=== PATIENT | female | born 1955 | race Two or more races ===

== ENCOUNTER → 2017-10-31 | Outpatient (CLI) | payer MEDICAID ==
[~2017-10-31] VITALS: Ht 162.6 cm; Wt 95.3 kg
[~2017-10-31] MED LIST: ADENOSINE 80 MG in GIVE UN-DILUTED 0 ML IV ONE
[2017-10-31 09:19] VITALS: BP 154/94
== END | disposition home or self-care (01) ==
LOC: XY 08:10
PROVIDERS: ATTEND Internal Medicine Cardiovascular Disease
DX: R07.89 Other chest pain (principal)
CPT/HCPCS: 78452; 93017; A9500; J0153

== ENCOUNTER 2022-01-11 21:22 | Emergency (ER) | payer SELFPAY ==
[~2022-01-11] VITALS: Ht 160 cm; Wt 102.3 kg
[2022-01-11 21:35] VITALS: BP 109/56
[2022-01-11 22:29] LABS: Basophils # (auto) 0 10 ^3/uL (0-0.2); Basophils % (auto) 0.2 % (0.0-2.0); Eosinophils # (auto) 0 10 ^3/uL (0-0.8); Eosinophils % (auto) 0.3 % (0.0-7.0); Hematocrit 40.5 % (36.0-46.0); Hemoglobin 13.3 g/dL (12.2-16.2); Lymphocytes % (auto) 7.2 % (10.0-50.0); Mean Corpuscular Hemoglobin 28.1 pg (28.0-32.0); Mean Corpuscular Hgb Conc. 32.9 g/dL (32.0-36.0); Mean Corpuscular Volume 85.4 fL (80.0-100.0); Monocytes # (auto) 0.4 10 ^3/uL (0-1.3); Monocytes % (auto) 3.1 % (0.0-12.0); Neutrophils # (auto) 12.9 10 ^3/uL (1.6-8.6); Neutrophils % (auto) 89.2 % (37.0-80.0); Red Blood Cells 4.74 10^6/uL (4.0-5.20); Red Cell Distribution Width 15.1 % (11.8-14.3); White Blood Cell 14.4 10^3/uL (4.4-10.8)
[2022-01-11 22:49] LABS: Albumin 3.8 g/dL (3.4-5.0); Calcium 9.3 mg/dL (8.5-10.1); Potassium 3.8 mmol/L (3.5-5.1)
[2022-01-11 22:53] LABS: BUN/Creatinine Ratio 23.1; Bilirubin, Total 0.8 mg/dL (0.2-1.0); Total Protein 7.5 g/dL (6.4-8.2)
[2022-01-11] MEDS ORDERED: LEVO-28 PO (23:44)
== END 2022-01-12 02:58 | disposition home or self-care (01) ==
LOC: ER 21:24
DX: K52.9 Noninfective gastroenteritis and colitis, unspecified (principal); I10 Essential (primary) hypertension; Z90.710 Acquired absence of both cervix and uterus
CPT/HCPCS: 36415; 71250; 74176; 80053; 84484; 85025

== ENCOUNTER → 2024-03-15 | Outpatient (CLI) | payer OTHER ==
[~2024-03-15] MED LIST changes: -ADENOSINE 80 MG in GIVE UN-DILUTED 0 ML IV ONE; +LEVO500T91 PO
[2024-03-15 15:30] LABS: Urine Bacteria FEW /hpf (None Seen); Urine Blood Negative /uL (Negative); Urine Clarity Clear (Clear); Urine Color Light-Yellow (Yellow); Urine Mucus FEW (None Seen); Urine Protein, UAD Negative (Negative); Urine Specific Gravity 1.023 (1.001-1.035); Urine Urobilinogen Normal (Negative); Urine WBC 9 /hpf (0 - 5); Urine pH 5.5 (5.0-9.0)
== END | disposition home or self-care (01) ==
LOC: LAB 15:03
PROVIDERS: ATTEND Urology
DX: R32 Unspecified urinary incontinence (principal)
CPT/HCPCS: 81001; 87086

== ENCOUNTER 2024-03-19 09:57 | Inpatient (IN) | payer OTHER, MEDICAID ==
[~2024-03-19] VITALS: Ht 162.6 cm; Wt 53.4 kg
--- NOTE | 2024-03-19 10:17 | ED.PDOC ---
GI ASSESSMENT HPI Comments 68-year-old female who comes in with chief complaint of abdominal pain which started this morning. The patient was also been having episodes of vomiting since this morning. The patient has vomited approximately 4 times. She states that the pain is a 10/10. The pain is epigastric in nature and radiates to the back. She has had these symptoms in the past and she states that her last episode was approximately one month ago. Initially, the patient went to the local urgent care and was given Zofran 8 mg without any relief. The patient was also given a GI cocktail with no relief. Chief Complaint: Abdominal Pain Time Seen by MD: 10:02 Reviewed Notes: Nurses Notes, Medications, Allergies (No allergies to medications) Allergies: Coded Allergies: NO KNOWN ALLERGIES (Unverified , 10/31/17) Home Meds Active Scripts Levofloxacin Hemihydrate (LEVOFLOXACIN) 500 Mg Tab, 500 MG PO DAILY for 7 Days, #7 MG Prov:SHANA MILLER MD 01/11/22 Information Source: Patient Mode of Arrival: Ambulatory Timing: Hours Duration: Since onset Prehospital treatment: None Quality: Sharp Vomitus: Bilious Stool: Normal Severity: Moderate Recent: None Recent Hx of: None Pain Location: Epigastric Modifying Factors: Nothing Associated sign and symptoms: Nausea, Vomiting, Abdominal Pain Past Medical History PAST MEDICAL HISTORY: HTN Surgical History: Hysterectomy [employer]OMO[employer]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 History Family History Family History: Family hx of DM, Family hx of stroke Social History Smoker: Non-Smoker Alcohol: Occasionally Drugs: Denies Drug Use Lives In: Home Constitutional: denies: chills, diaphoresis, fatigue, fever, malaise, sweats, weakness, others EENTM: denies: blurred vision, double vision, ear bleeding, ear discharge, ear drainage, ear pain, ear ringing, eye pain, eye redness, hearing loss, mouth pain, mouth swelling, nasal discharge, nose bleeding, nose congestion, nose pain, photophobia, tearing, throat pain, throat swelling, voice changes, others Respiratory: denies: cough, hemoptysis, orthopnea, SOB at rest, shortness of breath, SOB with excertion, stridor, wheezing, others Cardiovascular: denies: chest pain, dizzy spells, diaphoresis, Dyspnea on ex ertion, edema, irregular heart beat, left arm pain, lightheadedness, palpitations, PND, syncope, others Gastrointestinal: reports: abdominal pain, nausea, vomiting; denies: abdomen distended, blood streaked bowels, constipated, diarrhea, dysphagia, difficulty swallowing, hematemesis, melena, poor appetite, poor fluid intake, rectal bleeding, rectal pain, others Genitourinary: denies: abnormal vagina bleeding, burning, dyspareunia, dysuria, flank pain, frequency, hematuria, incontinence, pain, , vagina discharge, urgency, others Neurological: denies: dizziness, fainting, headache, left sided numbness, left sided weakness, numbness, paresthesia, pre-existing deficit, right sided numbness, right sided weakness, seizure, speech problems, tingling, tremors, weakness, others Musculoskeletal: denies: back pain, gout, joint pain, joint swelling, muscle pain, muscle stiffness, neck pain, others Integumetry: denies: bruises, change in color, change in hair/nails, dryness, laceration, lesions, lumps, rash, wounds, others Allergic/Immunocompromised: denies: Difficulty Healing, Frequent Infections, Hives, Itching, others Hematologic/Lymphatic: denies: anemia, blood clots, easy bleeding, easy bruising, swollen glands, others Endocrine: denies: excessive hunger, excessive sweating, excessive thirst, excessive urination, flushing, intolerance to cold, intolerance to heat, unexplained weight gain, unexplained weight loss, others Psychiatric: denies: anxiety, bipolar disorder, depression, hopeless, panic disorder, schizophrenia, sleepless, suicidal, others Physical Exam General Appearance: Moderate Distress, Obese HEENT: Normal ENT Inspection, Pharynx Normal, TMs Normal Neck: Full Range of Motion, Non-Tender, Normal, Normal Inspection Respiratory: Chest Non-Tender, Lungs Clear, No Accessory Muscle Use, No Respiratory Distress, Normal Breath Sounds Cardiovascular: No Edema, No JVD, No Murmur, No Gallop, Normal Peripheral Pulses, Regular Rate/Rhythm Breast Exam: Deferred Gastrointestinal: Epigastric, No Organomegaly, No Pulsatile Mass, Normal Bowel Sounds, Soft, Tenderness Genitalia: Deferred Pelvic: Deferred Rectal: Deferred Extremities: No calf tenderness, Normal capillary refill, Normal inspection, Normal range of motion, Non-tender, No pedal edema Musculoskeletal : Apperance: Normal Neurologic: Alert, metals analyst II-XII nml as Tested, Motor Weakness, Normal Affect, Normal Mood, No Sensory Deficits Cerebellar Function: Normal Reflexes: Normal Skin: Dry, Normal Color, Warm Lymphatic: No Adenopathy EKG EKG : Pulse Rate (adult): 67 [place]: Normal Cardiac Rhythm: NSR Block: None ST: Nonsp Was a procedure done? Was a procedure done?: No GI differential Dx Differential Diagnosis: Appendicitis, Cholangitis, Cholecystitis, Diverticular disease, Gastritis/PUD, Gastroenteritis X-Ray, Labs, Meds, VS Vital Signs Date Time Temp Pulse Resp B/P (MAP) Pulse Ox O2 Delivery O2 Flow Rate FiO2 03/19/24 11:08 73 16 107/51 03/19/24 10:50 62 18 99 Room Air* 0 21 03/19/24 10:37 62 18 112/53 03/19/24 10:17 67 03/19/24 10:13 98.2 83 19 117/77 (90) 99 03/19/24 10:08 67 Lab Test 03/19/24 10:19 Range/Units White Blood Count 9.4 4.4-10.8 10^3/uL Red Blood Count 4.69 4.0-5.20 10^6/uL Hemoglobin 13.5 12.2-16.2 g/dL Hematocrit 39.7 36.0-46.0 % Mean Corpuscular Volume 84.6 80.0-100.0 fL Mean Corpuscular Hemoglobin 28.8 28.0-32.0 pg Mean Corpuscular Hemoglobin Concent 34.0 32.0-36.0 g/dL Red Cell Distribution Width 14.3 11.8-14.3 % Platelet Count 273 140-450 10^3/uL Mean Platelet Volume 8.5 6.9-10.8 fL Neutrophils (%) (Auto) 90.3 H 37.0-80.0 % Lymphocytes (%) (Auto) 6.0 L 10.0-50.0 % Monocytes (%) (Auto) 3.4 0.0-12.0 % Eosinophils (%) (Auto) 0.1 0.0-7.0 % Basophils (%) (Auto) 0.2 0.0-2.0 % Neutrophils # (Auto) 8.5 1.6-8.6 10 ^3/uL Lymphocytes # (Auto) 0.6 0.4-5.4 10 ^3/uL Monocytes # (Auto) 0.3 0-1.3 10 ^3/uL Eosinophils # (Auto) 0 0-0.8 10 ^3/uL Basophils # (Auto) 0 0-0.2 10 ^3/uL Nucleated Red Blood Cells 0.1 % Sodium Level 142 136-145 mmol/L Potassium Level 3.8 3.5-5.1 mmol/L Chloride Level 109 H 98-107 mmol/L Carbon Dioxide Level 28 20-31 mmol/L Anion Gap 5 5-15 Blood Urea Nitrogen 15 9-23 mg/dL Creatinine 0.76 0.550-1.02 mg/dL Glomerular Filtration Rate Calc 86 >90 mL/min BUN/Creatinine Ratio 19.7 10.0-20.0 Serum Glucose 134 H 74-106 mg/dL Calcium Level 10.6 H 8.7-10.4 mg/dL Total Bilirubin 2.2 H 0.2-1.0 mg/dL Aspartate Amino Transferase (AST) 324 H 13-40 U/L Alanine Aminotransferase (ALT) 232 H 7-40 U/L Alkaline Phosphatase 129 H 46-116 U/L Total Protein 7.8 5.7-8.2 g/dL Albumin 4.5 3.2-4.8 g/dL Lipase Pending Current Medications Medications (Trade) Dose Ordered Sig/Cheryl Route Start Time Stop Time Status Last Admin Morphine Sulfate 4 mg ONCE ONCE IV 03/19/24 10:15 03/19/24 10:16 DC 03/19/24 10:37 Sodium Chloride 500 ml @ 500 mls/hr Q1H ONCE IVB 03/19/24 10:15 03/19/24 11:14 DC 03/19/24 10:37 Prochlorperazine Edisylate (Compazine Inj) 10 mg ONCE ONCE IV 03/19/24 10:15 03/19/24 10:16 DC 03/19/24 10:36 Pantoprazole Sodium (Protonix) 40 mg ONCE ONCE IV 03/19/24 10:15 03/19/24 10:16 DC 03/19/24 10:36 IV Hep-Lock is being ordered The patient was given normal saline at a 500 cc bolus The patient was given Compazine 10 mg IV push The patient was also being given morphine 4 mg IV push The patient was given Protonix 40 mg IV push The ultrasound of the gallbladder shows gallstones At this time, the patient will be admitted to the hospitalist. Images Reviewed?: Images reviewed and evaluated by me Time of 1ST Reevaluation: 10:17 Reevaluation 1ST: Unchanged Patient Education/Counseling: Diagnosis, Treatment, Prognosis Family Education/Counseling: No Family Present Departure 1 Departure Time of Disposition: 11:39 Impression: Primary Impression: Acute abdominal pain Additional Impression: Cholelithiasis Qualified Codes: K80.20 - Calculus of gallbladder without cholecystitis without obstruction Disposition: ADMITTED INPATIENT Admit to: Med Surg Condition: Fair Critical Care Note Critical Care Time?: No Stability Stability form required: Yes (Okay) Unstable for transfer: ED Physician Assesment (Clinical assesment) Heart Score Heart Score: Heart Score Response (Comments) Value History N/A 0 EKG N/A 0 Age N/A 0 Risk Factors N/A 0 Troponin N/A (They are used a discharge that arena soup) 0 Total 0 LIZBETH HOBBS MD Mar 19, 2024 10:17
[2024-03-19] MEDS: PROCHLORPERAZINE EDISYLATE 5 MG/ML 2ML VIAL IV ONE (10:36)
[2024-03-19] MEDS: PANTOPRAZOLE 40 MG/10 ML VIAL INJ IV ONE ×2 (10:36→22:25)
[2024-03-19] MEDS: SODIUM CHLORIDE 0.9% 500 ML IVB ONE (10:37)
[2024-03-19] MEDS: MORPHINE SULFATE 4 MG/ML SYR/VIAL IV ONE (10:37)
[2024-03-19 10:43] LABS: Basophils # (auto) 0 10 ^3/uL (0-0.2); Basophils % (auto) 0.2 % (0.0-2.0); Eosinophils # (auto) 0 10 ^3/uL (0-0.8); Eosinophils % (auto) 0.1 % (0.0-7.0); Hematocrit 39.7 % (36.0-46.0); Hemoglobin 13.5 g/dL (12.2-16.2); Lymphocytes # (auto) 0.6 10 ^3/uL (0.4-5.4); Mean Corpuscular Hemoglobin 28.8 pg (28.0-32.0); Mean Corpuscular Volume 84.6 fL (80.0-100.0); Monocytes # (auto) 0.3 10 ^3/uL (0-1.3); Monocytes % (auto) 3.4 % (0.0-12.0); Neutrophils # (auto) 8.5 10 ^3/uL (1.6-8.6); Neutrophils % (auto) 90.3 % (37.0-80.0); Nucleated Red Blood Cells % 0.1 %; Platelet Count (auto) 273 10^3/uL (140-450); Red Blood Cells 4.69 10^6/uL (4.0-5.20); Red Cell Distribution Width 14.3 % (11.8-14.3); White Blood Cell 9.4 10^3/uL (4.4-10.8)
[2024-03-19 10:50] VITALS: PULSE 62; RESP 18; O2SAT 99
[2024-03-19 11:01] LABS: Alanine Aminotransferase 232 U/L (7-40); Albumin 4.5 g/dL (3.2-4.8); Alkaline Phosphatase 129 U/L (46-116); Anion Gap 5 (5-15); Aspartate Aminotransferase 324 U/L (13-40); BUN/Creatinine Ratio 19.7 (10.0-20.0); Bilirubin, Total 2.2 mg/dL (0.2-1.0); Blood Urea Nitrogen 15 mg/dL (9-23); Calcium 10.6 mg/dL (8.7-10.4); Carbon Dioxide 28 mmol/L (20-31); Chloride 109 mmol/L (98-107); Glucose 134 mg/dL (74-106); Potassium 3.8 mmol/L (3.5-5.1); Sodium 142 mmol/L (136-145); Total Protein 7.8 g/dL (5.7-8.2)
--- NOTE | 2024-03-19 11:28 | DVH ---
INDICATION: Pain. TECHNIQUE: Multiple real-time sonographic images of the abdomen were obtained. COMPARISON: None FINDINGS: The liver is homogenous in echogenicity. The liver measures 17cm. No intrahepatic biliary ductal dilatation is noted. The gallbladder wall measures 0.2 cm and is unremarkable. Gallstones are noted. The common duct wayne sures 0.5 cm and is unremarkable. No pericholecystic fluid is noted. The right kidney measures 8cm. No hydronephrosis. The pancreas is not well visualized due to obscuration from bowel gas. The visualized portions of the IVC and aorta are grossly unremarkable. IMPRESSION: Gallstones.
[2024-03-19 12:10] LABS: Lipase > 3500 U/L (12-53)
[2024-03-19 13:07] LABS: Urine Bacteria MANY /hpf (None Seen); Urine Blood Negative /uL (Negative); Urine Clarity Clear (Clear); Urine Color Yellow (Yellow); Urine Mucus FEW (None Seen); Urine Protein, UAD TRACE (Negative); Urine Specific Gravity 1.017 (1.001-1.035); Urine Urobilinogen 6 mg/dL (Negative); Urine WBC 3 /hpf (0 - 5)
--- NOTE | 2024-03-19 18:26 | DVH ---
[id number] MRI MRCP MRI Attending Name: LIZBETH HOBBS COMPARISON: CT scan dated 01/11/2022, ultrasound dated 03/19/2024 INDICATION: CBD Stones TECHNIQUE: MRCP was performed without the use of intravenous contrast using a MRI imaging system. Three-dimensional MRCP was performed using maximum intensity projection reconstruction on an [employer] workstation under concurrent supervision. FINDINGS: Edematous pancreas with peripancreatic edema. No pancreatic ductal dilatation noted. No pseudocyst formation. The common bile duct is normal in caliber measuring 4-5 mm in caliber. Mildly distended ga llbladder containing numerous gallstones. No gallbladder wall thickening. There is mild thickening of the gallbladder wall with subcentimeter diverticular formation suggestive of adenomyomatosis. Liver, spleen, kidneys and adrenal glands are unremarkable. Mild bibasilar subsegmental atelectasis n oted. IMPRESSION: 1. Acute pancreatitis. Correlate with lipase. No pseudocyst is present at this time. 2. Numerous tiny calculi noted in the gallbladder. No choledocholithiasis or CBD dilatation. 3. Findings suggestive of gallbladder adenomyomatosis.
[2024-03-19] MEDS ORDERED: ONDANSETRON HCL 4 MG/2 ML VIAL IV PRN (21:30)
[2024-03-19] MEDS ORDERED: NITROGLYCERIN 0.4 MG SL TAB SL PRN (21:30)
[2024-03-19] MEDS ORDERED: MORPHINE SULFATE INJ 2 MG/ml SYRG IV PRN (21:30)
[2024-03-19] MEDS ORDERED: SODIUM CHLORIDE 0.9% 1,000 ML IV SCH (21:30)
[2024-03-19] MEDS: SODIUM CHLORIDE 0.9% 1,000 ML IV SCH (22:24)
--- NOTE | 2024-03-19 22:32 | DVHHPRES ---
History of Present Illness Resident Creating Document: SHARON WATERMAN RESIDENT History of Present Illness This is a 68-year-old female with past medical history of hypertension presented to the ED with chief complaint of epigastric pain and vomiting since morning prior to this admission. According to the patient the epigastric pain is colicky in nature, 10/10 radiate to the back and associated with nausea and vomiting without any aggravating and relieving factors. She also mentioned she had intermittent few episodes of abdominal pain in last 1 month but did not seek any medical attention. Initially the patient went to local urgent care and was given Zofran 8 mg and also GI cocktail without any relief. She also complaining of incontinence of urine, urgency and hesitancy and need to use pad for last 2 month. The patient denies chest pain, dizziness, diaphoresis, shortness of breath, dysuria or any change in bowel and bladder habit . Cardiovascular: HTN Past Medical History Hypertension Past Surgical History Hysterectomy Family History Family history significant for type 2 diabetes mellitus and stroke Smoke: No ALCOHOL: none Drugs: None Lives: with Family Review of Systems Constitutional: No: Fever, Chills, Sweats, Weakness, Malaise, Other Eyes: No: Pain, Vision change, Conjunctivae inflammation, Eyelid inflammation, Other, Redness ENT: No: Ear pain, Ear discharge, Nose pain, Nose discharge, Nose congestion, Mouth pain, Mouth swelling, Throat pain, Throat swelling, Other Respiratory: No: Cough, Dry, Shortness of breath, SOB with excertion, Wheezing, Hemoptysis, Pleuritic Pain, Sputum, Wheezing, Other Cardiovascular: No: Chest Pain, Palpitations, Orthopnea, Paroxysmal Noc. Dyspnea, Edema, Lt Headedness, Other Gastrointestinal: Nausea, Vomiting, Abdominal Pain; No: Diarrhea, Constipation, Melena, Hematochezia, Other Genitourinary: No Dysuria; Frequency, Incontinence; No Hematuria, No Retention, No Other Musculoskeletal: No: other, neck pain, shoulder pain, arm pain, back pain, hand pain, leg pain, foot pain Skin: No: Rash, Lesions, Jaundice, Bruising, Other Neurological: No: Weakness, Numbness, Incoordination, Change in speech, Confusion, Seizures, Other Allergies: Coded Allergies: NO KNOWN ALLERGIES (Unverified , 10/31/17) Medications Current Medications Medications Dose Ordered Sig/Cheryl Route Start Time Stop Time Status Last Admin Dose Admin Acetaminophen/ Hydrocodone Bitart 1 tab Q4HP PRN PO 03/19/24 21:30 Ondansetron HCl 4 mg Q4HP PRN IV 03/19/24 21:30 Enoxaparin Sodium 40 mg DAILY SC 03/20/24 10:00 Morphine Sulfate 2 mg Q4HPRN PRN IV 03/19/24 21:30 Nitroglycerin 0.4 mg Q5MINP PRN SL 03/19/24 21:30 Morphine Sulfate 2 mg Q30M PRN IV 03/19/24 21:30 Sodium Chloride 1,000 ml @ 100 mls/hr Q10H IV 03/19/24 22:15 03/19/24 22:24 100 MLS/HR Pantoprazole Sodium 40 mg DAILY IV 03/20/24 10:00 Exam Vital Signs Vital Signs Date Time Temp Pulse Resp B/P (MAP) Pulse Ox O2 Delivery O2 Flow Rate FiO2 03/19/24 20:39 71 16 139/63 (88) 99 03/19/24 10:50 Room Air* 0 21 03/19/24 10:13 98.2 Exam Physical examination: General Appearance: Alert, Oriented X3, Cooperative, No acute distress HEENT: Atraumatic, PERRLA, EOMI, Mucous membrane moist/pink Respiratory: Clear to auscultation, Normal air movement Cardiovascular: Regular rate, Normal S1, Normal S2, No murmurs, no chest wall tenderness Abdominal: Normal bowel sounds, Soft, tenderness in the epigastric region, No hepatospenomegaly, No masses Extremities: No clubbing, No cyanosis, No edema, Normal pulses, No tenderness/swelling Skin: No rashes, No breakdown, No significant lesion Neuro: Normal gait, Normal speech, Strength at 5/5 X4 ext, Normal tone, Sensation intact. Psych/Mental Status: Mental status NL, Mood NL Labs/Xrays Labs Test 03/19/24 10:19 03/19/24 10:08 Range/Units White Blood Count 9.4 4.4-10.8 10^3/uL Red Blood Count 4.69 4.0-5.20 10^6/uL Hemoglobin 13.5 12.2-16.2 g/dL Hematocrit 39.7 36.0-46.0 % Mean Corpuscular Volume 84.6 80.0-100.0 fL Mean Corpuscular Hemoglobin 28.8 28.0-32.0 pg Mean Corpuscular Hemoglobin Concent 34.0 32.0-36.0 g/dL Red Cell Distribution Width 14.3 11.8-14.3 % Platelet Count 273 140-450 10^3/uL Mean Platelet Volume 8.5 6.9-10.8 fL Neutrophils (%) (Auto) 90.3 H 37.0-80.0 % Lymphocytes (%) (Auto) 6.0 L 10.0-50.0 % Monocytes (%) (Auto) 3.4 0.0-12.0 % Eosinophils (%) (Auto) 0.1 0.0-7.0 % Basophils (%) (Auto) 0.2 0.0-2.0 % Neutrophils # (Auto) 8.5 1.6-8.6 10 ^3/uL Lymphocytes # (Auto) 0.6 0.4-5.4 10 ^3/uL Monocytes # (Auto) 0.3 0-1.3 10 ^3/uL Eosinophils # (Auto) 0 0-0.8 10 ^3/uL Basophils # (Auto) 0 0-0.2 10 ^3/uL Nucleated Red Blood Cells 0.1 % Sodium Level 142 136-145 mmol/L Potassium Level 3.8 3.5-5.1 mmol/L Chloride Level 109 H 98-107 mmol/L Carbon Dioxide Level 28 20-31 mmol/L Anion Gap 5 5-15 Blood Urea Nitrogen 15 9-23 mg/dL Creatinine 0.76 0.550-1.02 mg/dL Glomerular Filtration Rate Calc 86 >90 mL/min BUN/Creatinine Ratio 19.7 10.0-20.0 Serum Glucose 134 H 74-106 mg/dL Calcium Level 10.6 H 8.7-10.4 mg/dL Total Bilirubin 2.2 H 0.2-1.0 mg/dL Aspartate Amino Transferase (AST) 324 H 13-40 U/L Alanine Aminotransferase (ALT) 232 H 7-40 U/L Alkaline Phosphatase 129 H 46-116 U/L Total Protein 7.8 5.7-8.2 g/dL Albumin 4.5 3.2-4.8 g/dL Lipase > 3500 H 12-53 U/L Urine Color Yellow Yellow Urine Clarity Clear Clear Urine pH 6.0 5.0-9.0 Urine Specific [place] 1.017 1.001-1.035 Urine Protein Trace H Negative Urine Ketones Negative Negative Urine Blood Negative Negative /uL Urine Nitrite 1+ H Negative Urine Bilirubin 1+ H Negative Urine Urobilinogen 6 Negative mg/dL Urine Leukocyte Esterase Negative Negative /uL Urine RBC 4 0 - 4 /hpf Urine WBC 3 0 - 5 /hpf Urine Squamous Epithelial Cells Few <5 /hpf Urine Bacteria Many H None Seen /hpf Urine Mucus Few None Seen Urine Glucose Normal Normal mg/dL Assessment/Plan Assessment/Plan Assessment and plan: # Acute abdominal pain likely due to pancreatitis - Lipase is more than 3500 - MRCP revealed edematous pancreas with peripancreatic edema ,multiple tiny calculi in the gallbladder and possible gallbladder adenomyomatosis. - Lipid profile demonstrated mildly elevated LDL and TG, total cholesterol, and HDL are normal - Patient is NPO - IV lactated ringer 125 mL/hour - IV morphine 2 mg q.4 p.r.n - IV ondansetron 4 mg q.4 p.r.n # Hyperbilirubinemia with transaminitis - Ordered hepatitis panel and coagulation studies - Monitor CMP. # Acute cystitis - UA is consistent with UTI - Ordered urine bacterial culture - IV ceftriaxone 1 g daily. # Hypercalcemia likely due to dehydration - Patient is on IV fluid # PUD prophylaxis - IV Protonix 40 mg daily. # DVT prophylaxis - Lovenox 40 mg sc daily Goal of care discussed with the patient for more than 20 minutes full code Plan of treatment discussed with Dr. Leon Plan discussed with: Patient, Other My Orders Orders - SHARON WATERMAN RESIDENT Procedure Category Date Status Time Admit ADMIT 03/19/24 Transmitted 21:18 Code Status CODE 03/19/24 Transmitted 21:18 Hydrocodone-Acet PHA 03/19/24 In Process 5/325mg Tab ([place] 21:30 Ondansetron Hcl PHA 03/19/24 In Process (Zofran) 21:30 Enoxaparin Sodium PHA 03/20/24 In Process (Lovenox) 10:00 Complete Blood Count LAB 03/20/24 Verified 04:00 Comprehensive LAB 03/20/24 Verified Metabolic Panel 04:00 Npo (Nothing By DIET 03/20/24 Transmitted Mouth) Diet Breakfast Morphine Sulfate PHA 03/19/24 In Process Injection 21:30 Nitroglycerin PHA 03/19/24 In Process Sublingual (Ntrostat 21:30 Morphine Sulfate PHA 03/19/24 In Process Injection 21:30 Oxygen By Nasal RT 03/19/24 Transmitted Cannula 21:18 Stat Ekg For Chest LARRY 03/19/24 In Process Pain 21:18 Notify Of Changes LARRY 03/19/24 In Process From Base 21:18 Metropolitan Editor For LARRY 03/19/24 In Process 24 Hours 21:18 Emergency Dysrhythmia LARRY 03/19/24 In Process Protocol 21:18 Rhythm Strips Once LARRY 03/19/24 In Process Every Shift 21:18 Sodium Chloride 0.9% PHA 03/19/24 In Process 22:15 Lipid Panel LAB 03/19/24 In Process 22:05 Pantoprazole PHA 03/20/24 In Process (Protonix) 10:00 Thyroid Stimulating LAB 03/19/24 In Process Hormone 22:05 Hemoglobin A1c LAB 03/19/24 In Process 22:05 Vitamin B12 LAB 03/19/24 In Process 22:05 Vitamin D, 25-Hydroxy LAB 03/19/24 In Process 22:05 Date of Service: Mar 19, 2024 Billing Provider: KEVYN LEON MD Common Visit Codes: 20649-GNWYKHB INP/OBS CARE (HIGH) Secondary Visit Codes: 74162-DNJOKGAN CARE PLAN 30 MINUTES SHARON WATERMAN RESIDENT Mar 19, 2024 22:32 KEVNY LEON MD Mar 20, 2024 18:20
[2024-03-19 22:39] LABS: Triglycerides 142 mg/dL (< 150)
[2024-03-19 22:40] LABS: LDL Cholesterol 118 mg/dL (< 100)
[2024-03-19 22:41] LABS: Cholesterol 189 mg/dL (< 200); HDL Cholesterol 55 mg/dL (40-59)
[2024-03-20] MEDS: HYDROcodone-ACET 5/325MG TAB PO PRN (00:22)
[2024-03-20] MEDS: LACTATED RINGER'S 1,000 ML IV SCH (00:22)
[2024-03-20 03:46] LABS: Basophils # (auto) 0 10 ^3/uL (0-0.2); Basophils % (auto) 0.3 % (0.0-2.0); Eosinophils # (auto) 0.1 10 ^3/uL (0-0.8); Eosinophils % (auto) 1.2 % (0.0-7.0); Hematocrit 36.9 % (36.0-46.0); Hemoglobin 12.3 g/dL (12.2-16.2); Lymphocytes # (auto) 1.1 10 ^3/uL (0.4-5.4); Lymphocytes % (auto) 15.4 % (10.0-50.0); Mean Corpuscular Hemoglobin 28.6 pg (28.0-32.0); Mean Corpuscular Hgb Conc. 33.3 g/dL (32.0-36.0); Monocytes # (auto) 0.3 10 ^3/uL (0-1.3); Monocytes % (auto) 4.6 % (0.0-12.0); Neutrophils # (auto) 5.5 10 ^3/uL (1.6-8.6); Neutrophils % (auto) 78.5 % (37.0-80.0); Platelet Count (auto) 225 10^3/uL (140-450); Red Blood Cells 4.29 10^6/uL (4.0-5.20); White Blood Cell 6.9 10^3/uL (4.4-10.8)
[2024-03-20 04:00] LABS: INR 1.09 (0.9-1.15); Partial Thromboplastin Time 25.4 SEC (24.5-34.5); Prothrombin Time 11.5 sec (9.3-11.8)
[2024-03-20 04:08] LABS: Alanine Aminotransferase 415 U/L (7-40); Albumin 4.1 g/dL (3.2-4.8); Alkaline Phosphatase 141 U/L (46-116); Anion Gap 5 (5-15); Aspartate Aminotransferase 330 U/L (13-40); BUN/Creatinine Ratio 18.3 (10.0-20.0); Bilirubin, Total 1.8 mg/dL (0.2-1.0); Blood Urea Nitrogen 11 mg/dL (9-23); Calcium 9.6 mg/dL (8.7-10.4); Carbon Dioxide 28 mmol/L (20-31); Chloride 109 mmol/L (98-107); Glucose 109 mg/dL (74-106); Potassium 3.6 mmol/L (3.5-5.1); Sodium 142 mmol/L (136-145); Total Protein 6.7 g/dL (5.7-8.2)
[2024-03-20] MEDS: PANTOPRAZOLE 40 MG/10 ML VIAL INJ IV SCH (07:52)
[2024-03-20] MEDS: ENOXAPARIN SOD 40 MG/0.4 ML SYRINGE SC SCH (07:52)
[2024-03-20] MEDS: cefTRIAXone 1GM/50ML D5W 50 ML IV SCH (07:53)
--- NOTE | 2024-03-20 07:59 | ECG ---
[facility] Test Date: 2024-03-19 Test Time: 10:08:04 Pat Name: VANCE GONZALEZ Department: ER Room: [address] [place] [address] Gender: F Back Roller: JOHN : 1955 Requested By: LIZBETH HOBBS Order Number: [id number] Reading MD: López Son Measurements Intervals [place] Rate: 67 P: 39 [place]: 163 QRS: -62 QRSD: 105 T: -78 QT: 483 QTc: 510 Interpretive Statements Sinus arrhythmia LAD, consider left anterior fascicular block Nonspecific T abnormalities, diffuse leads Prolonged QT interval Electronically Signed On 03-29-2024 12:47:15 PST by López Son Please click the below link to view image of tracing.
[2024-03-20 10:40] VITALS: BP 139/65; PULSE 77; RESP 17; TEMP 98.7; O2SAT 95
[2024-03-20 11:02] VITALS: PULSE 71; RESP 19; O2SAT 97
[2024-03-20 13:00] VITALS: BP 144/63; PULSE 84; RESP 17; TEMP 97.6; O2SAT 96
--- NOTE | 2024-03-20 14:43 | DVHPN2 ---
Subjective Seen and examined at bedside, c/o abdominal pain. NPO cont IVF. Has Gallbladder Adenomyomatosis. Changes from previous H/P or p: No Changes Eyes: No Pain, No Vision change, No Conjunctivae inflammation, No Eyelid inflammation, No Other, No Redness ENT: No Ear pain, No Ear discharge, No Nose pain, No Nose discharge, No Nose congestion, No Mouth pain, No Mouth swelling, No Throat pain, No Throat swelling, No Other Cardiovascular: No Chest Pain, No Palpitations, No Orthopnea, No Paroxysmal Noc. Dyspnea, No Edema, No Lt Headedness, No Other Respiratory: No Cough, No Dry, No Shortness of breath, No SOB with excertion, No Wheezing, No Hemoptysis, No Pleuritic Pain, No Sputum, No Other Gastrointestinal: Nausea, Vomiting, Abdominal Pain; No Diarrhea, No Constipation, No Melena, No Hematochezia, No Other Genitourinary: No Dysuria; Frequency, Incontinence; No Hematuria, No Retention, No Other Musculoskeletal: No other, No neck pain, No shoulder pain, No arm pain, No back pain, No hand pain, No leg pain, No foot pain Skin: No Rash, No Lesions, No Jaundice, No Bruising, No Other Objective Vitals Vital Signs Date Time Temp Pulse Resp B/P (MAP) Pulse Ox O2 Delivery O2 Flow Rate FiO2 03/20/24 11:43 97 17 131/64 (86) 96 03/20/24 11:02 Room Air* 0 21 03/20/24 10:40 98.7 98.7 Intake/Output Intake and Output 03/20/24 07:00 Intake Total 600 ml Balance 600 ml Intake IV Total 600 ml Exam Gen: in bed NAD Cvs: N S1/S2, RRR Resp: BLAE Abd: Tenderness Patrol Guard: AAO x 4 Medications Current Medications Medications Dose Ordered Sig/Cheryl Route Start Time Stop Time Status Last Admin Dose Admin Acetaminophen/ Hydrocodone Bitart 1 tab Q4HP PRN PO 03/19/24 21:30 03/20/24 00:22 1 TAB Ondansetron HCl 4 mg Q4HP PRN IV 03/19/24 21:30 Enoxaparin Sodium 40 mg DAILY SC 03/20/24 10:00 03/20/24 07:52 40 MG Morphine Sulfate 2 mg Q4HPRN PRN IV 03/19/24 21:30 Nitroglycerin 0.4 mg Q5MINP PRN SL 03/19/24 21:30 Morphine Sulfate 2 mg Q30M PRN IV 03/19/24 21:30 Pantoprazole Sodium 40 mg DAILY IV 03/20/24 10:00 03/20/24 07:52 40 MG Lactated Ringer's 1,000 ml @ 125 mls/hr Q8H IV 03/19/24 23:45 03/20/24 07:53 125 MLS/HR Ceftriaxone Sodium 50 ml @ 100 mls/hr DAILY@09 IV 03/20/24 09:00 03/20/24 07:53 100 MLS/HR Laboratory Results Laboratory Tests 03/20/24 03:31 Chemistry Test 03/20/24 03:31 Albumin 4.1 g/dL (3.2-4.8) Calcium Level 9.6 mg/dL (8.7-10.4) Total Protein 6.7 g/dL (5.7-8.2) Coagulation Test 03/20/24 03:31 Prothrombin Time 11.5 sec (9.3-11.8) Prothrombin Time INR 1.09 (0.9-1.15) Activated Partial Thromboplast Time 25.4 SEC (24.5-34.5) LFT Test 03/20/24 03:31 Alanine Aminotransferase (ALT) 415 U/L (7-40) H Alkaline Phosphatase 141 U/L (46-116) H Aspartate Amino Transferase (AST) 330 U/L (13-40) H Total Bilirubin 1.8 mg/dL (0.2-1.0) H Urinalysis Test 03/19/24 10:08 Urine Color Yellow (Yellow) Urine Clarity Clear (Clear) Urine pH 6.0 (5.0-9.0) Urine Specific [place] 1.017 (1.001-1.035) Urine Protein Trace (Negative) H Urine Ketones Negative (Negative) Urine Blood Negative /uL (Negative) Urine Nitrite 1+ (Negative) H Urine Bilirubin 1+ (Negative) H Urine Urobilinogen 6 mg/dL (Negative) Urine Leukocyte Esterase Negative /uL (Negative) Urine RBC 4 /hpf (0 - 4) Urine WBC 3 /hpf (0 - 5) Urine Squamous Epithelial Cells Few /hpf (<5) Urine Bacteria Many /hpf (None Seen) H Urine Mucus Few (None Seen) Urine Glucose Normal mg/dL (Normal) Assessment/Plan Assessment/Plan Assessment and plan: # Acute abdominal pain likely due to pancreatitis - Lipase is more than 3500 - MRCP revealed edematous pancreas with peripancreatic edema ,multiple tiny calculi in the gallbladder and possible gallbladder adenomyomatosis. - Lipid profile demonstrated mildly elevated LDL and TG, total cholesterol, and HDL are normal - Patient is NPO - IV lactated ringer 125 mL/hour - IV morphine 2 mg q.4 p.r.n - IV ondansetron 4 mg q.4 p.r.n # Gallbladder Adenomyomatosis- Outpatient Surgical Eval # Hyperbilirubinemia with transaminitis - Ordered hepatitis panel and coagulation studies - Monitor CMP. # Acute cystitis - UA is consistent with UTI - Ordered urine bacterial culture - IV ceftriaxone 1 g daily. # Hypercalcemia likely due to dehydration - Patient is on IV fluid # PUD prophylaxis - IV Protonix 40 mg daily. # DVT prophylaxis - Lovenox 40 mg sc daily Goal of care discussed with the patient for more than 20 minutes full code Plan discussed with: Patient My Orders Orders - KEVYN CABRAL MD Procedure Category Date Status Time Mrcp Mri MRI 03/19/24 Resulted 17:24 Date of Service: Mar 20, 2024 Billing Provider: KEVYN CABRAL MD Common Visit Codes: [id number] INP/OBS CARE(HIGH) KEVYN CABRAL MD Mar 20, 2024 14:43
[2024-03-20 14:55] VITALS: PULSE 88; RESP 18; O2SAT 97
[2024-03-20 17:00] VITALS: BP 136/68; PULSE 78; RESP 16; TEMP 98.5; O2SAT 98
[2024-03-20] MEDS: MORPHINE SULFATE INJ 2 MG/ml SYRG IV PRN (20:29)
[2024-03-20 21:00] VITALS: BP 142/77; PULSE 75; RESP 20; TEMP 99; O2SAT 96
[2024-03-21] VITALS (7 sets, daily range): BP systolic 131–154; BP diastolic 62–87; PULSE 57–88; RESP 20–21; TEMP 97.8–98.3; O2SAT 92–98
[2024-03-21 06:24] LABS: Alanine Aminotransferase 231 U/L (7-40); Albumin 3.9 g/dL (3.2-4.8); Alkaline Phosphatase 127 U/L (46-116); Anion Gap 10 (5-15); Aspartate Aminotransferase 78 U/L (13-40); BUN/Creatinine Ratio 13.5 (10.0-20.0); Blood Urea Nitrogen 7 mg/dL (9-23); Calcium 9.4 mg/dL (8.7-10.4); Carbon Dioxide 24 mmol/L (20-31); Chloride 106 mmol/L (98-107); Glucose 88 mg/dL (74-106); Lipase 128 U/L (12-53); Potassium 3.5 mmol/L (3.5-5.1); Sodium 140 mmol/L (136-145)
[2024-03-21 06:25] LABS: Bilirubin, Total 1.5 mg/dL (0.2-1.0); Total Protein 6.5 g/dL (5.7-8.2)
[2024-03-21] MEDS ORDERED: ACETAMINOPHEN 325 MG TAB PO PRN (16:00)
[2024-03-21] MEDS: traMADol HCL 50 MG TAB PO PRN (17:00)
--- NOTE | 2024-03-21 17:05 | DVHPN2 ---
Subjective Seen and examined at bedside, still c/o of abdominal pain. Attempt clear liquids. Changes from previous H/P or p: No Changes Eyes: No Pain, No Vision change, No Conjunctivae inflammation, No Eyelid inflammation, No Other, No Redness ENT: No Ear pain, No Ear discharge, No Nose pain, No Nose discharge, No Nose congestion, No Mouth pain, No Mouth swelling, No Throat pain, No Throat swelling, No Other Cardiovascular: No Chest Pain, No Palpitations, No Orthopnea, No Paroxysmal Noc. Dyspnea, No Edema, No Lt Headedness, No Other Respiratory: No Cough, No Dry, No Shortness of breath, No SOB with excertion, No Wheezing, No Hemoptysis, No Pleuritic Pain, No Sputum, No Other Gastrointestinal: No Nausea, No Vomiting, No Abdominal Pain, No Diarrhea, No Constipation, No Melena, No Hematochezia, No Other Genitourinary: No Dysuria, No Frequency, No Incontinence, No Hematuria, No Retention, No Other Musculoskeletal: No other, No neck pain, No shoulder pain, No arm pain, No back pain, No hand pain, No leg pain, No foot pain Skin: No Rash, No Lesions, No Jaundice, No Bruising, No Other Objective Vitals Vital Signs Date Time Temp Pulse Resp B/P (MAP) Pulse Ox O2 Delivery O2 Flow Rate FiO2 03/21/24 16:37 98.1 78 20 142/69 (93) 97 98.1 03/21/24 08:00 Room Air* 0 21 Intake/Output Intake and Output 03/21/24 07:00 Intake Total 915 ml Output Total 800 ml Balance 115 ml Intake Oral 240 ml IV Total 675 ml Output Urine Total 800 ml # Voids 1 Exam Gen: in bed NAD Cvs: N S1/S2, RRR Resp: BLAE Abd: Tenderness Lining Setter: AAO x 4 Medications Current Medications Medications Dose Ordered Sig/Cheryl Route Start Time Stop Time Status Last Admin Dose Admin Acetaminophen/ Hydrocodone Bitart 1 tab Q4HP PRN PO 03/19/24 21:30 03/20/24 00:22 1 TAB Ondansetron HCl 4 mg Q4HP PRN IV 03/19/24 21:30 Enoxaparin Sodium 40 mg DAILY SC 03/20/24 10:00 03/21/24 09:33 40 MG Morphine Sulfate 2 mg Q4HPRN PRN IV 03/19/24 21:30 03/20/24 20:29 2 MG Nitroglycerin 0.4 mg Q5MINP PRN SL 03/19/24 21:30 Morphine Sulfate 2 mg Q30M PRN IV 03/19/24 21:30 Pantoprazole Sodium 40 mg DAILY IV 03/20/24 10:00 03/21/24 09:33 40 MG Lactated Ringer's 1,000 ml @ 125 mls/hr Q8H IV 03/19/24 23:45 03/21/24 07:45 125 MLS/HR Ceftriaxone Sodium 50 ml @ 100 mls/hr DAILY@09 IV 03/20/24 09:00 03/21/24 09:35 100 MLS/HR Tramadol HCl 50 mg Q8HPRN PRN PO 03/21/24 16:45 Laboratory Results Laboratory Tests 03/20/24 03:31 03/21/24 05:26 Chemistry Test 03/21/24 05:26 Albumin 3.9 g/dL (3.2-4.8) Calcium Level 9.4 mg/dL (8.7-10.4) Total Protein 6.5 g/dL (5.7-8.2) Lipid panel Test 03/21/24 05:26 Lipase 128 U/L (12-53) H LFT Test 03/21/24 05:26 Alanine Aminotransferase (ALT) 231 U/L (7-40) H Alkaline Phosphatase 127 U/L (46-116) H Aspartate Amino Transferase (AST) 78 U/L (13-40) H Total Bilirubin 1.5 mg/dL (0.2-1.0) H Urinalysis Test 03/19/24 10:08 Urine Color Yellow (Yellow) Urine Clarity Clear (Clear) Urine pH 6.0 (5.0-9.0) Urine Specific [place] 1.017 (1.001-1.035) Urine Protein Trace (Negative) H Urine Ketones Negative (Negative) Urine Blood Negative /uL (Negative) Urine Nitrite 1+ (Negative) H Urine Bilirubin 1+ (Negative) H Urine Urobilinogen 6 mg/dL (Negative) Urine Leukocyte Esterase Negative /uL (Negative) Urine RBC 4 /hpf (0 - 4) Urine WBC 3 /hpf (0 - 5) Urine Squamous Epithelial Cells Few /hpf (<5) Urine Bacteria Many /hpf (None Seen) H Urine Mucus Few (None Seen) Urine Glucose Normal mg/dL (Normal) Assessment/Plan Assessment/Plan Assessment and plan: # Acute abdominal pain due to pancreatitis - Lipase is more than 3500 - MRCP revealed edematous pancreas with peripancreatic edema ,multiple tiny calculi in the gallbladder and possible gallbladder adenomyomatosis. - Lipid profile demonstrated mildly elevated LDL and TG, total cholesterol, and HDL are normal - Patient is clear liquids - IV lactated ringer 125 mL/hour - IV morphine 2 mg q.4 p.r.n - IV ondansetron 4 mg q.4 p.r.n # Gallbladder Adenomyomatosis- Outpatient Surgical Eval # Hyperbilirubinemia with transaminitis - Ordered hepatitis panel and coagulation studies - Monitor CMP. # Acute cystitis - UA is consistent with UTI - Ordered urine bacterial culture - IV ceftriaxone 1 g daily. # Hypercalcemia likely due to dehydration - Patient is on IV fluid # PUD prophylaxis - IV Protonix 40 mg daily. # DVT prophylaxis - Lovenox 40 mg sc daily Goal of care discussed with the patient for more than 20 minutes full code Plan discussed with: Patient, Spouse My Orders Orders - KEVYN CABRAL MD Procedure Category Date Status Time * Gi D[facility] [employer] CONS 03/21/24 Transmitted 14:48 Tramadol Hcl (Ultram) PHA 03/21/24 In Process 16:45 Date of Service: Mar 21, 2024 Billing Provider: KEVYN CABRAL MD Common Visit Codes: [id number] INP/OBS CARE(HIGH) KEVYN CABRAL MD Mar 21, 2024 17:05
[2024-03-22 05:00] VITALS: BP 148/80; PULSE 79; RESP 18; TEMP 98.8; O2SAT 98
[2024-03-22] MEDS ORDERED: LISI20TA56 PO (05:54)
[2024-03-22 06:10] LABS: Alanine Aminotransferase 155 U/L (7-40); Alkaline Phosphatase 117 U/L (46-116); Anion Gap 11 (5-15); Aspartate Aminotransferase 29 U/L (13-40); BUN/Creatinine Ratio 13.5 (10.0-20.0); Blood Urea Nitrogen 7 mg/dL (9-23); Calcium 9.5 mg/dL (8.7-10.4); Carbon Dioxide 23 mmol/L (20-31); Chloride 106 mmol/L (98-107); Glucose 83 mg/dL (74-106); Potassium 3.5 mmol/L (3.5-5.1); Sodium 140 mmol/L (136-145)
[2024-03-22 06:11] LABS: Bilirubin, Total 1.4 mg/dL (0.2-1.0); Total Protein 6.7 g/dL (5.7-8.2)
[2024-03-22 07:42] VITALS: BP 121/67; PULSE 57; RESP 20; TEMP 98.4; O2SAT 98
[2024-03-22 08:00] VITALS: PULSE 57; RESP 20; O2SAT 98
[2024-03-22 09:46] LABS: Hepatitis B Core Total AB Negative (Negative)
[2024-03-22 10:43] LABS: Hepatitis B Surface Antigen Negative (Negative)
[2024-03-22 11:04] LABS: Hepatitis C Antibody Negative (Negative)
[2024-03-22 11:07] LABS: Hepatitis A Total Antibody Positive (Negative); Hepatitis B Surface Antibody Negative (Negative); Hepatitis B Surface Antigen Negative (Negative); Hepatitis C Antibody Negative (Negative)
[2024-03-22 11:58] VITALS: BP 130/69; PULSE 66; RESP 20; TEMP 98.3; O2SAT 90
--- NOTE | 2024-03-22 12:59 | DVHDS2 ---
Discharge Summary Date of Admission Mar 19, 2024 at 21:18 Date of Discharge: Mar 22, 2024 Admitting Diagnosis Acute Pancreatitis Labs/Diagnostic Data: Laboratory Results Test 03/22/24 05:14 03/20/24 03:31 03/19/24 10:19 03/19/24 10:08 Sodium Level 140 mmol/L (136-145) Potassium Level 3.5 mmol/L (3.5-5.1) Chloride Level 106 mmol/L (98-107) Carbon Dioxide Level 23 mmol/L (20-31) Anion Gap 11 (5-15) Blood Urea Nitrogen 7 mg/dL (9-23) Creatinine 0.52 mg/dL (0.550-1.02) Glomerular Filtration Rate Calc 102 mL/min (>90) BUN/Creatinine Ratio 13.5 (10.0-20.0) Serum Glucose 83 mg/dL (74-106) Calcium Level 9.5 mg/dL (8.7-10.4) Total Bilirubin 1.4 mg/dL (0.2-1.0) Aspartate Amino Transferase (AST) 29 U/L (13-40) Alanine Aminotransferase (ALT) 155 U/L (7-40) Alkaline Phosphatase 117 U/L (46-116) Total Protein 6.7 g/dL (5.7-8.2) Albumin 4.0 g/dL (3.2-4.8) Lipase 73 U/L (12-53) White Blood Count 6.9 10^3/uL (4.4-10.8) Red Blood Count 4.29 10^6/uL (4.0-5.20) Hemoglobin 12.3 g/dL (12.2-16.2) Hematocrit 36.9 % (36.0-46.0) Mean Corpuscular Volume 86.0 fL (80.0-100.0) Mean Corpuscular Hemoglobin 28.6 pg (28.0-32.0) Mean Corpuscular Hemoglobin Concent 33.3 g/dL (32.0-36.0) Red Cell Distribution Width 14.0 % (11.8-14.3) Platelet Count 225 10^3/uL (140-450) Mean Platelet Volume 8.1 fL (6.9-10.8) Neutrophils (%) (Auto) 78.5 % (37.0-80.0) Lymphocytes (%) (Auto) 15.4 % (10.0-50.0) Monocytes (%) (Auto) 4.6 % (0.0-12.0) Eosinophils (%) (Auto) 1.2 % (0.0-7.0) Basophils (%) (Auto) 0.3 % (0.0-2.0) Neutrophils # (Auto) 5.5 10 ^3/uL (1.6-8.6) Lymphocytes # (Auto) 1.1 10 ^3/uL (0.4-5.4) Monocytes # (Auto) 0.3 10 ^3/uL (0-1.3) Eosinophils # (Auto) 0.1 10 ^3/uL (0-0.8) Basophils # (Auto) 0 10 ^3/uL (0-0.2) Nucleated Red Blood Cells 0.0 % Prothrombin Time 11.5 sec (9.3-11.8) Prothrombin Time INR 1.09 (0.9-1.15) Activated Partial Thromboplast Time 25.4 SEC (24.5-34.5) Hepatitis A Antibody Total Positive (Negative) Hepatitis B Surface Antigen Negative (Negative) Hepatitis B Surface Antibody Negative (Negative) Hepatitis B Core Total Antibody Negative (Negative) Hepatitis C Antibody Negative (Negative) Hemoglobin A1c 5.4 % A1C (<5.7) Triglycerides Level 142 mg/dL (< 150) Cholesterol Level 189 mg/dL (< 200) LDL Cholesterol 118 mg/dL (< 100) HDL Cholesterol 55 mg/dL (40-59) Vitamin B12 Level 1585 pg/mL (211-911) Vitamin D 25-Hydroxy 31.5 ng/mL (30.0-100) Thyroid Stimulating Hormone (TSH) 1.22 uIU/mL (0.55-4.78) Urine Color Yellow (Yellow) Urine Clarity Clear (Clear) Urine pH 6.0 (5.0-9.0) Urine Specific [place] 1.017 (1.001-1.035) Urine Protein Trace (Negative) Urine Ketones Negative (Negative) Urine Blood Negative /uL (Negative) Urine Nitrite 1+ (Negative) Urine Bilirubin 1+ (Negative) Urine Urobilinogen 6 mg/dL (Negative) Urine Leukocyte Esterase Negative /uL (Negative) Urine RBC 4 /hpf (0 - 4) Urine WBC 3 /hpf (0 - 5) Urine Squamous Epithelial Cells Few /hpf (<5) Urine Bacteria Many /hpf (None Seen) Urine Mucus Few (None Seen) Urine Glucose Normal mg/dL (Normal) Other Laboratory Tests 03/22/24 05:14 03/20/24 03:31 Brief Hx & Hospital Course: Patient is a 68-year-old female who presented to the hospital with abdominal pain. Patient had an MRCP done suggestive of acute pancreatitis possibly due to gallbladder pathology versus idiopathic. Patient did have transaminitis which has been resolving patient reports abdominal pain has improving. Patient is on a clear liquid diet and will be discharged home with clear liquids for the next 2 weeks. Patient will see Dr. Wilson on Tuesday in the discharge Clinic and GI clinic afterwards. Patient will need to have repeat CMP done explained this to the patient detail her daughter and spouse at bedside. Patient wishes to be discharged home today. Operations or Procedures [id number] MRI MRCP MRI Attending Name: LIZBETH HOBBS COMPARISON: CT scan dated 01/11/2022, ultrasound dated 03/19/2024 INDICATION: CBD Stones TECHNIQUE: MRCP was performed without the use of intravenous contrast using a MRI imaging system. Three-dimensional MRCP was performed using maximum intensity projection reconstruction on an independent workstation under concurrent supervision. FINDINGS: Edematous pancreas with peripancreatic edema. No pancreatic ductal dilatation noted. No pseudocyst formation. The common bile duct is normal in caliber measuring 4-5 mm in caliber. Mildly distended gallbladder containing numerous gallstones. No gallbladder wall thickening. There is mild thickening of the gallbladder wall with subcentimeter diverticular formation suggestive of adenomyomatosis. Liver, spleen, kidneys and adrenal glands are unremarkable. Mild bibasilar subsegmental atelectasis noted. IMPRESSION: 1. Acute pancreatitis. Correlate with lipase. No pseudocyst is present at this time. 2. Numerous tiny calculi noted in the gallbladder. No choledocholithiasis or CBD dilatation. 3. Findings suggestive of gallbladder adenomyomatosis. Condition at Discharge: Stable Final Diagnosis/Problems List # Acute abdominal pain due to pancreatitis- Resolving # Gallbladder Adenomyomatosis- Outpatient Surgical Eval # Hyperbilirubinemia with transaminitis - Monitor CMP. repeat next week # Acute cystitis- Resolved Discharge Disposition: Home Discharge Instruct/Medications Diet: See Comment Diet comment: Clear Liquids Activity: Light activity Follow Up/Referral: Dr. Wilson on Tuesday Discharge Statement: "Patient was advised to return to the ER or call 911 if any headaches, dizziness, shortness of breath, chest pain, abdominal pain, bleeding, fevers, or worsening of medical condition. Patient was counseled about treatment plan, medications, possible side effects, patientverbalized understanding. All questions were answered to the best of my ability. This discharge took greater then 30 minutes in planning, reviewing documentation, counseling the patient, and discussing with other team members." ASSESSMENT ASSESSMENT Assessment Date of Service: Mar 22, 2024 Billing Provider: KEVYN CABRAL MD Common Visit Codes: [id number] DISCH DAY >30min KEVYN CABRAL MD Mar 22, 2024 12:59
[2024-03-22 13:59] VITALS: BP 121/67; PULSE 57; RESP 18; TEMP 97.8; O2SAT 98
--- NOTE | 2024-03-22 22:35 | DVHINCON2 ---
Date of service: Mar 22, 2024 (Late entryPatient seen at 8:00 a.m.) Referring Physician Dr Leon Reason for Consultation Pancreatitis and possible cholecystitis History of Present Illness This is a 68-year-old female with past medical history of hypertension presented to the ED with chief complaint of epigastric pain and vomiting since morning prior to this admission. According to the patient the epigastric pain is co licky in nature, 10/10 radiate to the back and associated with nausea and vomiting without any aggravating and relieving factors. She also mentioned she had intermittent few episodes of abdominal pain in last 1 month but did not seek any medical attention. Initially the patient went to local urgent care and was given Zofran 8 mg and also GI cocktail without any relief. She also complaining of incontinence of urine, urgency and hesitancy and need to use pad for last 2 month. Patient does drink some alcohol. Patient was seen at bedside she was sitting out of bed to chair and stated she was feeling better. The patient denies chest pain, dizziness, diaphoresis, shortness of breath, dysuria or any change in bowel and bladder habit . Past Medical History Cardiovascular: HTN Past Medical History Hypertension Past Surgical History Past Surgical History Hysterectomy Family History: Diabetes mellitus G8 MOTHER Allergies: Coded Allergies: NO KNOWN ALLERGIES (Unverified , 10/31/17) Home Meds Reported Medications Lisinopril (Lisinopril) 20 Mg Tab, 20 MG PO DAILY for 30 Days, MG 03/22/24 Discontinued Scripts Levofloxacin Hemihydrate (LEVOFLOXACIN) 500 Mg Tab, 500 MG PO DAILY for 7 Days, #7 MG Prov:SHANA MILLER MD 01/11/22 Vital Signs Vital Signs Date Time Temp Pulse Resp B/P (MAP) Pulse Ox O2 Delivery O2 Flow Rate FiO2 03/22/24 13:59 97.8 57 18 98 03/22/24 11:58 130/69 (89) 03/22/24 08:00 Room Air* 0 21 Physical Exam General Appearance: Alert, Oriented X3, Cooperative, No acute distress HEENT: Atraumatic, PERRLA, EOMI, Mucous membrane moist/pink Respiratory: Clear to auscultation, Normal air movement Cardiovascular: Regular rate, Normal S1, Normal S2, No murmurs, no chest wall tenderness Abdominal: Normal bowel sounds, Soft, tenderness in the epigastric region, No hepatospenomegaly, No masses Extremities: No clubbing, No cyanosis, No edema, Normal pulses, No tenderness/swelling Skin: No rashes, No breakdown, No significant lesion Neuro: Normal gait, Normal speech, Strength at 5/5 X4 ext, Normal tone, Sensation intact. Psych/Mental Status: Mental status NL, Mood NL Labs/Diagnostic Data Labs Test 03/22/24 05:14 03/20/24 03:31 03/19/24 10:19 03/19/24 10:08 Range/Units Sodium Level 140 136-145 mmol/L Potassium Level 3.5 3.5-5.1 mmol/L Chloride Level 106 98-107 mmol/L Carbon Dioxide Level 23 20-31 mmol/L Anion Gap 11 5-15 Blood Urea Nitrogen 7 L 9-23 mg/dL Creatinine 0.52 L 0.550-1.02 mg/dL Glomerular Filtration Rate Calc 102 >90 mL/min BUN/Creatinine Ratio 13.5 10.0-20.0 Serum Glucose 83 74-106 mg/dL Calcium Level 9.5 8.7-10.4 mg/dL Total Bilirubin 1.4 H 0.2-1.0 mg/dL Aspartate Amino Transferase (AST) 29 13-40 U/L Alanine Aminotransferase (ALT) 155 H 7-40 U/L Alkaline Phosphatase 117 H 46-116 U/L Total Protein 6.7 5.7-8.2 g/dL Albumin 4.0 3.2-4.8 g/dL Lipase 73 H 12-53 U/L White Blood Count 6.9 # 4.4-10.8 10^3/uL Red Blood Count 4.29 4.0-5.20 10^6/uL Hemoglobin 12.3 12.2-16.2 g/dL Hematocrit 36.9 36.0-46.0 % Mean Corpuscular Volume 86.0 80.0-100.0 fL Mean Corpuscular Hemoglobin 28.6 28.0-32.0 pg Mean Corpuscular Hemoglobin Concent 33.3 32.0-36.0 g/dL Red Cell Distribution Width 14.0 11.8-14.3 % Platelet Count 225 140-450 10^3/uL Mean Platelet Volume 8.1 6.9-10.8 fL Neutrophils (%) (Auto) 78.5 37.0-80.0 % Lymphocytes (%) (Auto) 15.4 10.0-50.0 % Monocytes (%) (Auto) 4.6 0.0-12.0 % Eosinophils (%) (Auto) 1.2 0.0-7.0 % Basophils (%) (Auto) 0.3 0.0-2.0 % Neutrophils # (Auto) 5.5 1.6-8.6 10 ^3/uL Lymphocytes # (Auto) 1.1 0.4-5.4 10 ^3/uL Monocytes # (Auto) 0.3 0-1.3 10 ^3/uL Eosinophils # (Auto) 0.1 0-0.8 10 ^3/uL Basophils # (Auto) 0 0-0.2 10 ^3/uL Nucleated Red Blood Cells 0.0 % Prothrombin Time 11.5 9.3-11.8 sec Prothrombin Time INR 1.09 0.9-1.15 Activated Partial Thromboplast Time 25.4 24.5-34.5 SEC Hepatitis A Antibody Total Positive H Negative Hepatitis B Surface Antigen Negative Negative Hepatitis B Surface Antibody Negative Negative Hepatitis B Core Total Antibody Negative Negative Hepatitis C Antibody Negative Negative Hemoglobin A1c 5.4 <5.7 % A1C Triglycerides Level 142 < 150 mg/dL Cholesterol Level 189 < 200 mg/dL LDL Cholesterol 118 H < 100 mg/dL HDL Cholesterol 55 40-59 mg/dL Vitamin B12 Level 1585 H 211-911 pg/mL Vitamin D 25-Hydroxy 31.5 30.0-100 ng/mL Thyroid Stimulating Hormone (TSH) 1.22 0.55-4.78 uIU/mL Urine Color Yellow Yellow Urine Clarity Clear Clear Urine pH 6.0 5.0-9.0 Urine Specific [place] 1.017 1.001-1.035 Urine Protein Trace H Negative Urine Ketones Negative Negative Urine Blood Negative Negative /uL Urine Nitrite 1+ H Negative Urine Bilirubin 1+ H Negative Urine Urobilinogen 6 Negative mg/dL Urine Leukocyte Esterase Negative Negative /uL Urine RBC 4 0 - 4 /hpf Urine WBC 3 0 - 5 /hpf Urine Squamous Epithelial Cells Few <5 /hpf Urine Bacteria Many H None Seen /hpf Urine Mucus Few None Seen Urine Glucose Normal Normal mg/dL MRCP IMPRESSION: 1. Acute pancreatitis. Correlate with lipase. No pseudocyst is present at this time. 2. Numerous tiny calculi noted in the gallbladder. No choledocholithiasis or CBD dilatation. 3. Findings suggestive of gallbladder adenomyomatosis. Problems(with codes): (1) Pancreatitis (2) Acute abdominal pain (3) Cholelithiasis (4) Gastroenteritis Plan/Recommendation Assessment and plan Patient appears to have had possible pancreatitis related to gallbladder disease with a differential diagnosis of alcohol-related pancreatitis Elevated liver enzymes due to the above Patient is feeling better Advance diet as tolerated Discharge planning Outpatient follow up with surgical consult to discuss elective cholecystectomy Outpatient follow up with me as needed to discuss elective panendoscopy Plan discussed with: Patient RAYMOND MOYA MD Mar 22, 2024 22:34
== END 2024-03-22 15:00 | disposition home or self-care (01) | DRG 439 ==
LOC: ER 09:57 → OVERFLOW 21:18 → TELE-E-ADS 03-20 13:54
PROVIDERS: ATTEND Internal Medicine
DX: K85.90 Acute pancreatitis without necrosis or infection, unspecified (principal); N30.00 Acute cystitis without hematuria; R74.01 Elevation of levels of liver transaminase levels; E83.52 Hypercalcemia; I10 Essential (primary) hypertension; K82.8 Other specified diseases of gallbladder; K80.20 Calculus of gallbladder without cholecystitis without obstruction; E80.6 Other disorders of bilirubin metabolism; Z90.710 Acquired absence of both cervix and uterus; Z83.3 Family history of diabetes mellitus; Z82.3 Family history of stroke; Z79.899 Other long term (current) drug therapy; E86.0 Dehydration
CPT/HCPCS: 36415; 74181; 76705; 80053; 80061; 81001; 82306; 82607; 83036; 83690; 84443; 85025; 85610; 85730; 86704; 86706; 86708; 86803; 87340; 93005; G0378; J2470

== ENCOUNTER → 2024-03-26 | Outpatient (CLI) | payer OTHER, MEDICAID ==
[~2024-03-26] MED LIST changes: -LEVO500T91 PO; +LISI20TA56 PO
[2024-03-26 16:35] LABS: Alanine Aminotransferase 72 U/L (7-40); Albumin 4.8 g/dL (3.2-4.8); Alkaline Phosphatase 112 U/L (46-116); Anion Gap 5 (5-15); Aspartate Aminotransferase 22 U/L (13-40); Bilirubin, Total 0.8 mg/dL (0.2-1.0); Blood Urea Nitrogen 7 mg/dL (9-23); Calcium 10.2 mg/dL (8.7-10.4); Carbon Dioxide 29 mmol/L (20-31); Chloride 106 mmol/L (98-107); Glucose 96 mg/dL (74-106); Lipase 53 U/L (12-53); Potassium 4.2 mmol/L (3.5-5.1); Sodium 140 mmol/L (136-145); Total Protein 7.9 g/dL (5.7-8.2)
== END | disposition home or self-care (01) ==
LOC: LAB 15:57
PROVIDERS: ATTEND Internal Medicine
DX: K85.90 Acute pancreatitis without necrosis or infection, unspecified (principal); K82.9 Disease of gallbladder, unspecified
CPT/HCPCS: 36415; 80053; 83690

== ENCOUNTER → 2024-03-27 | Outpatient (CLI) | payer OTHER, MEDICAID ==
[~2024-03-27] VITALS: Ht 162.6 cm; Wt 93.0 kg
[2024-03-27] MEDS: ADENOSINE 78 MG in GIVE UN-DILUTED 0 ML IV ONE (09:50)
--- NOTE | 2024-03-27 11:27 | DVHSR ---
APPROVED REPORT Exam: Nuclear Stress Test Indication: Chest pain Stress Tech: Yaz Hernandez BMI: 0 Medical History Medical History: HTN, DDD Allergies: No known drug allergies Stress Test Details Stress Test: Pharmacological stress testing performed using 78 mg of Adenosine HR Resting HR: 53 bpmMax Heart Rate (APMHR): 154.614111 bpm Max HR Achieved: 83 bpmTarget HR (85% APMHR): 130.781535 bpm % of APMHR: 53.90 Recovery HR: 66 bpm BP Resting BP: 140/91 mmHg Recovery BP: 123/66 mmHg ECG Resting ECG: Sinus Bradycardia Clinical Reason for Termination: Completed protocol Stress ECG Conclusion Resting ECG shows normal sinus rhythm. No significant STT wave changes was noted at peak stress leve l. Resting images shows near homogeneous uptake of radioactive tracer throughout the myocardium without evidence of myocardial infarction. Stress images shows near homogeneous uptake of radioactive tracer throughout the myocardium without e vidence of myocardial ischemia. Well-preserved left ventricular systolic function at 58%. Impression: Negative stress test for ischemia, low risk study. NM EXAM: Myocardial Perfusion REST/STRESS Imaging Protocol: Rest Tc-99m/Stress Tc-99m 1 day Resting Data Rest SPECT myocardial perfusion imaging was performed in supine position 60 minutes following the int ravenous injection of 10.8 mCi of Tc-99m Sestamibi. Time of rest injection: 0830 Time of rest imagin Administration Route: IV Administration Site: Left AC Pharmacologic Stress Pharmacologic stress test was performed by injecting Adenosine mg IV push followed by the intravenou s injection of 28 mCi of Tc-99m Sestamibi. Time of stress injection: 0951 Time of stress imagin Administration Route: IV Administration Site: Left AC Gated Stress SPECT was performed 60 minutes after stress injection. The images were gated to evaluate regional wall motion and calculate left ventricular ejection fracti on. Stress only was performed in the Supine position. Nuclear Conclusion ECG Findings: negative for ischemia Clinical Findings: negative for ischemia Nuclear Findings: negative for ischemia Exercise Capacity: not assessed Left Ventricular Function: normal Risk Study: low Resting ECG shows normal sinus rhythm. No significant STT wave changes was noted at peak stress leve l. Resting images shows near homogeneous uptake of radioactive tracer throughout the myocardium without evidence of myocardial infarction. Stress images shows near homogeneous uptake of radioactive tracer throughout the myocardium without e vidence of myocardial ischemia. Well-preserved left ventricular systolic function at 58%. Impression: Negative stress test for ischemia, low risk study.
== END | disposition home or self-care (01) ==
LOC: XYW 08:17
PROVIDERS: ATTEND Internal Medicine
DX: R00.1 Bradycardia, unspecified (principal); R07.9 Chest pain, unspecified; I10 Essential (primary) hypertension
CPT/HCPCS: 78452; 93017; A9500; J0153

== ENCOUNTER → 2024-04-11 | Outpatient (CLI) | payer OTHER, MEDICAID ==
[2024-04-11 10:58] LABS: Urine Bacteria None Seen /hpf (None Seen)
[2024-04-11 11:05] LABS: Basophils # (auto) 0 10 ^3/uL (0-0.2); Basophils % (auto) 0.6 % (0.0-2.0); Eosinophils # (auto) 0.1 10 ^3/uL (0-0.8); Hematocrit 39.5 % (36.0-46.0); Hemoglobin 13.2 g/dL (12.2-16.2); Lymphocytes # (auto) 1.5 10 ^3/uL (0.4-5.4); Lymphocytes % (auto) 31.1 % (10.0-50.0); Mean Corpuscular Hemoglobin 28.3 pg (28.0-32.0); Mean Corpuscular Hgb Conc. 33.4 g/dL (32.0-36.0); Mean Corpuscular Volume 84.8 fL (80.0-100.0); Monocytes # (auto) 0.3 10 ^3/uL (0-1.3); Monocytes % (auto) 5.3 % (0.0-12.0); Nucleated Red Blood Cells % 0.5 %; Platelet Count (auto) 257 10^3/uL (140-450); Red Blood Cells 4.65 10^6/uL (4.0-5.20); Red Cell Distribution Width 14.3 % (11.8-14.3)
[2024-04-11 11:17] LABS: INR 1.07 (0.9-1.15); Prothrombin Time 11.3 sec (9.3-11.8)
[2024-04-11 11:38] LABS: Urine Blood Negative /uL (Negative); Urine Clarity Clear (Clear); Urine Color Yellow (Yellow); Urine Mucus FEW (None Seen); Urine Protein, UAD Negative (Negative); Urine Specific Gravity 1.022 (1.001-1.035); Urine Urobilinogen 2 mg/dL (Negative); Urine WBC 2 /hpf (0 - 5); Urine pH 6.5 (5.0-9.0)
[2024-04-11 12:16] LABS: Alanine Aminotransferase 30 U/L (7-40); Albumin 4.7 g/dL (3.2-4.8); Alkaline Phosphatase 109 U/L (46-116); Anion Gap 7 (5-15); Aspartate Aminotransferase 18 U/L (13-40); BUN/Creatinine Ratio 16.7 (10.0-20.0); Bilirubin, Total 0.9 mg/dL (0.2-1.0); Blood Urea Nitrogen 10 mg/dL (9-23); Carbon Dioxide 29 mmol/L (20-31); Glucose 92 mg/dL (74-106); Lipase 36 U/L (12-53); Potassium 4.6 mmol/L (3.5-5.1); Sodium 144 mmol/L (136-145); Total Protein 7.6 g/dL (5.7-8.2)
[2024-04-11 12:23] LABS: Calcium 10.5 mg/dL (8.7-10.4); Chloride 108 mmol/L (98-107)
== END | disposition home or self-care (01) ==
LOC: LAB 10:41
PROVIDERS: ATTEND Internal Medicine Gastroenterology
DX: R94.5 Abnormal results of liver function studies (principal); K80.00 Calculus of gallbladder with acute cholecystitis without obstruction
CPT/HCPCS: 36415; 80053; 81001; 83690; 85025; 85610; 87086

== ENCOUNTER 2024-06-06 10:28 | Day surgery (SDC) | payer OTHER, MEDICAID ==
[2024-06-01 14:30] LABS: Basophils # (auto) 0 10 ^3/uL (0-0.2); Basophils % (auto) 0.8 % (0.0-2.0); Eosinophils # (auto) 0.1 10 ^3/uL (0-0.8); Eosinophils % (auto) 1.9 % (0.0-7.0); Hematocrit 39.8 % (36.0-46.0); Hemoglobin 13.3 g/dL (12.2-16.2); Lymphocytes # (auto) 1.7 10 ^3/uL (0.4-5.4); Lymphocytes % (auto) 33.2 % (10.0-50.0); Mean Corpuscular Hemoglobin 28.7 pg (28.0-32.0); Mean Corpuscular Hgb Conc. 33.4 g/dL (32.0-36.0); Mean Corpuscular Volume 86.1 fL (80.0-100.0); Monocytes # (auto) 0.3 10 ^3/uL (0-1.3); Monocytes % (auto) 5.8 % (0.0-12.0); Neutrophils % (auto) 58.3 % (37.0-80.0); Platelet Count (auto) 274 10^3/uL (140-450); Red Blood Cells 4.62 10^6/uL (4.0-5.20); Red Cell Distribution Width 14.4 % (11.8-14.3); White Blood Cell 5.2 10^3/uL (4.4-10.8)
[2024-06-01 14:40] LABS: Alanine Aminotransferase 30 U/L (7-40); Alkaline Phosphatase 101 U/L (46-116); Anion Gap 7 (5-15); Aspartate Aminotransferase 21 U/L (13-40); BUN/Creatinine Ratio 12.9 (10.0-20.0); Blood Urea Nitrogen 9 mg/dL (9-23); Calcium 10.3 mg/dL (8.7-10.4); Carbon Dioxide 27 mmol/L (20-31); Glucose 91 mg/dL (74-106); INR 1.02 (0.9-1.15); Partial Thromboplastin Time 27.4 SEC (24.5-34.5); Potassium 4.8 mmol/L (3.5-5.1); Prothrombin Time 10.8 sec (9.3-11.8); Sodium 143 mmol/L (136-145)
[2024-06-01 14:41] LABS: Bilirubin, Total 0.9 mg/dL (0.2-1.0); Total Protein 7.8 g/dL (5.7-8.2)
[2024-06-01 14:43] LABS: Albumin 4.9 g/dL (3.2-4.8); Chloride 109 mmol/L (98-107)
[~2024-06-06] VITALS: Ht 160 cm; Wt 93.4 kg
[2024-06-06] VITALS (8 sets, daily range): BP systolic 108–136; BP diastolic 66–80; PULSE 63–80; RESP 12–17; O2SAT 94–98
[~2024-06-06 10:28] MED LIST changes: +CHOL20007 PO
[2024-06-06] MEDS ORDERED: GELATIN 1 SPONGE SIZE 50 TOP ONE (12:56)
[2024-06-06] MEDS ORDERED: HEPARIN IN NS 1000Units/500mL 1,500 ML ONE (12:56)
[2024-06-06] MEDS ORDERED: IODIXANOL 320MG/ML 100ML BTL IV ONE (12:57)
[2024-06-06] MEDS ORDERED: VERAPAMIL 2.5MG/ML INJ 2ML VIAL IV ONE (13:00)
[2024-06-06] MEDS ORDERED: HEPARIN SODIUM (PORCINE) 5000 UNITS/ML 1ML VIAL ONE (13:00)
[2024-06-06] MEDS ORDERED: ANGIOMAX 250 MG VIAL IV ONE (13:00)
[2024-06-06] MEDS ORDERED: LIDOCAINE 2%HCL (LOCAL ANESTH.) INJ 20ML MDV ONE (13:01)
[2024-06-06] MEDS ORDERED: SODIUM CHL 0.9% 0 ML ONE (13:01)
[2024-06-06] MEDS ORDERED: MIDAZOLAM HCL 2MG/2ML 2ml VIAL (1mg/ml) ONE (13:01)
[2024-06-06] MEDS ORDERED: fentaNYL CITRATE 100 MCG/2 ML VL ONE (13:01)
--- NOTE | 2024-06-06 13:51 | DVHOP2 ---
Operative Report - 2 Report Details Date: 06/06/24 Preop Diagnosis: CAD Postop Diagnosis: Mild CAD Surgeon: Anjum Son MD Anesthesiologist: Conscious sedation Anesthesia: Mac, Local Consent: The patient was informed of the risks and benefits of the procedure. These include but are not limited to complications of anesthesia, postoperative infection, incomplete relief of symptoms, recurrence of symptoms, damage to blood vessels, nerves and tendons, deep venous thrombosis, pulmonary embolism and possible need for repeat surgery in the future. Complications: No complications Estimated Blood Loss: 2 cc Findings: Mild CAD Indications for Surgery: Chest pain Name of Procedure Performed Left heart catheterization bilateral cine coronary angiography. Left ventriculography. Fractional flow reserve evaluation with cath works program Procedure Details Procedure Details: Prior local anesthesia with 2% lidocaine to the right wrist and full informed consent obtained the patient was prepped and draped in usual fashion followed by placement of a six Serbian sheath into the right radial artery through which a six Serbian Coleman catheter was used for ventriculography and cannulation of both arm and left coronary ostia without complications. Hemodynamics aortic blood pressure was 110/70. End-diastolic pressure was 16 without gradient across the aortic valve on pullback Coronary anatomy the RCA is a large vessel it is normal in its proximal mid and distal segments. PDA and posterolateral branches are normal. Left main is large and normal. Left anterior descending is a large vessel it has a mild 30-40% proximal to mid stenosis. Distal segments free of significant disease. Septals and diagonals are normal. Circumflex is large with two marginals free of significant disease. FFR evaluation performed with the above-mentioned program. An FFR of 0.92 was delineated showing noncritical lesions of the LAD. Ventriculography in the GIBSON projection shows an EF of 60%. Impression : normal left ventricular end-diastolic pressure rest normal ejection fraction. No significant CAD. Normal FFR of the LAD. Recommendations: medical therapy is warranted continue with risk factor modification. End of dictation Condition Good Disposition Home Date of Service: Jun 06, 2024 Billing Provider: ANJUM SON Sr., MD Cardiology Common Codes: 29683-SXBJEWB INP/OBS CARE (High) Cardiology Procedure Codes: 96483-IGDOUW VESSEL W/I VASC FAM, 15231-CDBO ADD CORONARY BRANCH, 07203-KLFA HEART CATH W/INTRA INJ Peripheral Add ons: [id number] AND ANGIOPLASTY ANJUM SON Sr., MD Jun 06, 2024 13:51
== END 2024-06-06 16:00 | disposition home or self-care (01) ==
LOC: CATH 10:28
PROVIDERS: ATTEND Internal Medicine
DX: I25.10 Atherosclerotic heart disease of native coronary artery without angina pectoris (principal); R07.89 Other chest pain; I10 Essential (primary) hypertension; E66.9 Obesity, unspecified; Z68.36 Body mass index [BMI] 36.0-36.9, adult; Z79.899 Other long term (current) drug therapy; Z98.890 Other specified postprocedural states
CPT/HCPCS: 36415; 80053; 85025; 85610; 85730; 93458; C1887; C1894; J1644; J2250; J3010; J7030; Q9967; 75580; 99152

== ENCOUNTER 2024-07-10 08:51 | Day surgery (SDC) | payer OTHER, MEDICAID ==
[2024-07-06 08:50] LABS: Basophils # (auto) 0 10 ^3/uL (0-0.2); Basophils % (auto) 0.7 % (0.0-2.0); Eosinophils # (auto) 0.1 10 ^3/uL (0-0.8); Eosinophils % (auto) 2.1 % (0.0-7.0); Hematocrit 40.6 % (36.0-46.0); Hemoglobin 13.2 g/dL (12.2-16.2); Lymphocytes # (auto) 1.7 10 ^3/uL (0.4-5.4); Lymphocytes % (auto) 30.2 % (10.0-50.0); Mean Corpuscular Hemoglobin 27.7 pg (28.0-32.0); Mean Corpuscular Hgb Conc. 32.6 g/dL (32.0-36.0); Mean Corpuscular Volume 84.8 fL (80.0-100.0); Monocytes # (auto) 0.4 10 ^3/uL (0-1.3); Monocytes % (auto) 6.7 % (0.0-12.0); Neutrophils # (auto) 3.4 10 ^3/uL (1.6-8.6); Neutrophils % (auto) 60.3 % (37.0-80.0); Nucleated Red Blood Cells % 0.2 %; Platelet Count (auto) 253 10^3/uL (140-450); Red Blood Cells 4.78 10^6/uL (4.0-5.20); Red Cell Distribution Width 14.2 % (11.8-14.3); White Blood Cell 5.6 10^3/uL (4.4-10.8)
[2024-07-06 09:05] LABS: Urine Bacteria MANY /hpf (None Seen); Urine Blood Negative /uL (Negative); Urine Clarity Turbid (Clear); Urine Color Light-Yellow (Yellow); Urine Hyaline Cast FEW /lpf (0 - 2); Urine Mucus FEW (None Seen); Urine Protein, UAD Negative (Negative); Urine Specific Gravity 1.023 (1.001-1.035); Urine Squamous Epithelial Cell FEW /hpf (<5); Urine Urobilinogen Normal (Negative); Urine WBC 34 /HPF (0-5); Urine pH 6.5 (5.0-9.0)
[2024-07-06 09:11] LABS: INR 1.02 (0.9-1.15); Partial Thromboplastin Time 27.9 SEC (24.5-34.5); Prothrombin Time 10.8 sec (9.3-11.8)
[2024-07-06 09:55] LABS: Alanine Aminotransferase 25 U/L (7-40); Albumin 4.7 g/dL (3.2-4.8); Alkaline Phosphatase 107 U/L (46-116); Anion Gap 9 (5-15); Aspartate Aminotransferase 15 U/L (13-40); Bilirubin, Total 0.7 mg/dL (0.2-1.0); Blood Urea Nitrogen 16 mg/dL (9-23); Calcium 10.1 mg/dL (8.7-10.4); Carbon Dioxide 28 mmol/L (20-31); Chloride 105 mmol/L (98-107); Glucose 94 mg/dL (74-106); Potassium 4.3 mmol/L (3.5-5.1); Sodium 142 mmol/L (136-145); Total Protein 7.6 g/dL (5.7-8.2)
[2024-07-06 10:01] LABS: BUN/Creatinine Ratio 22.2 (10.0-20.0)
[~2024-07-10] VITALS: Ht 162.6 cm; Wt 94.8 kg
[2024-07-10] MEDS ORDERED: CIPROFLOXACIN 400MG/200ML 200 ML IV ONE (10:42)
[2024-07-10] MEDS ORDERED: fentaNYL CITRATE 100 MCG/2 ML VL ONE (12:34)
[2024-07-10] MEDS ORDERED: ONDANSETRON HCL 4 MG/2 ML VIAL ONE (12:34)
[2024-07-10] MEDS ORDERED: MIDAZOLAM HCL 2MG/2ML 2ml VIAL (1mg/ml) ONE (12:34)
[2024-07-10] MEDS ORDERED: SODIUM CHLORIDE LOCK 10 ML ONE (12:34)
[2024-07-10] MEDS ORDERED: MEPERIDINE HCL (25 MG/ML) 1ML VIAL ONE (12:34)
[2024-07-10] MEDS ORDERED: PROPOFOL 10 MG/ML 20 ML IV ONE (12:34)
[2024-07-10] MEDS ORDERED: LIDOCAINE HCL 2% TOP JELLY 5ML TOP ONE (12:39)
[2024-07-10] MEDS ORDERED: LIDOCAINE 1% INJ PF 5ML AMP ONE (12:39)
[2024-07-10 13:18] VITALS: PULSE 90; RESP 12; TEMP 97.2; O2SAT 95
[2024-07-10 13:31] VITALS: O2SAT 99
--- NOTE | 2024-07-10 13:38 | DVHNC2 ---
Procedure - OPERATIVE REPORT Pre-op. Diagnosis: Stress Urinary Incontinence Intrinsic Sphincteric Deficiency Post-op. 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 All questions were encouraged and answered. Patient is aware of specific risks/complications including but not limited to infection, bleeding, persistent urinary hematuria, urinary incontinence and urinary retention. Informed consent was obtained. Details of Procedure: Patient is taken to Operating suite and given appropriate anesthesia. After prepping and draping, the patient was placed in the lithotomy position. A 21 F rigid cystoscope was introduced and the bladder was emptied. Next, the scope was positioned in the urethra and injection of Coaptite (Bulking agent) at 4 thru 8 O'clock position using a long transurethral needle was performed. Fluoroscopy was utilized to confirm the proper placement of the radioopaque bulking agent. Coaptation of bladder neck was noted. Bladder was emptied. Patient tolerated the procedure well. Patient is awakened and taken to RR in stable condition. Specimens: None Complications: None Findings: Notes: DISPOSITION: Discharge to home after voided . RTC 2 weeks. Visit Code: Procedure Codes: 61411 ENDOSCOPIC INJ IMPLANT. MEE LOCK MD Jul 10, 2024 13:38
--- NOTE | 2024-07-10 13:39 | DVHDS2 ---
New Physician D'charge PN Admitting Diagnosis Admitting Diagnosis Stress urinary incontinence Discharge Diagnosis Same Operations or Procedures Trans urethral injection of Coaptite Reason(s) For Hospitalization Surgery Treatment Plan Discharge Condition of Discharge Good Disposition Home Discharge Instructions Diet: Regular Activity: Light activity Medications: given Follow Up Care Discharge Statement: "Patient was advised to return to the ER or call 911 if any headaches, dizziness, shortness of breath, chest pain, abdominal pain, bleeding, fevers, or worsening of medical condition. Patient was counseled about treatment plan, medications, possible side effects, patientverbalized understanding. All questions were answered to the best of my ability. This discharge took greater then 30 minutes in planning, reviewing documentation, counseling the patient, and discussing with other team members." MEE LOCK MD Jul 10, 2024 13:39
[2024-07-10 14:10] VITALS: BP 111/68; PULSE 66; RESP 97
--- NOTE | 2024-07-10 17:38 | DVH ---
CLINICAL INDICATION: COAPTITE INJECTION TECHNIQUE: 4 radiographic views of the g were obtained. Comparison: None FINDINGS/IMPRESSION: 4 images of COAPTITE INJECTION Total fluoro time 7.7 seconds Cumulative dose: 1.69 mGy
--- NOTE | 2024-07-10 17:51 | DVH ---
C-ARM FLUOROSCOPY: PROCEDURE: COAPTITE INJECTION TECHNIQUE: Less than 1 hour per C arm time used for COAPTITE INJECTION CLINICAL HISTORY: Not given FLUOROSCOPY TIME: 7.7 seconds DAP: 1.69 mgy FINDINGS: Spot intraoperative C arm radiographs demonstrating none. IMPRESSION: 1. Please refer to surgical report for detailed findings.
[2024-07-11] MEDS ORDERED: BACDST PO (11:21)
== END 2024-07-10 14:35 | disposition home or self-care (01) ==
LOC: SUR 08:51
PROVIDERS: ATTEND Urology
DX: N39.3 Stress incontinence (female) (male) (principal); I10 Essential (primary) hypertension; I25.10 Atherosclerotic heart disease of native coronary artery without angina pectoris; Z68.36 Body mass index [BMI] 36.0-36.9, adult; Z79.899 Other long term (current) drug therapy; Z90.710 Acquired absence of both cervix and uterus
CPT/HCPCS: 36415; 51715; 72170; 76000; 80053; 81001; 85025; 85610; 85730; 87086; J0744; J2175; J2250; J2405; J2704; J3010; L8606

== ENCOUNTER 2024-07-11 08:13 | Emergency (ER) | payer OTHER, MEDICAID ==
[~2024-07-11] VITALS: Ht 162.6 cm; Wt 90.0 kg
--- NOTE | 2024-07-11 09:08 | ED.PDOC ---
History of Present Illness HPI Comments 68F presents to the ER in a wheelchair being pushed by her spouse and w/ no prior Hx associated to the c/c of Urinary problems. Pt reports that she had a bladder lift yesterday and ever since then she has not been able to urinate w/ bladder pain of a 02/15. PMHx of HTN. SHx of and Hysterectomy. Denies chills, fever, N/V/D, SOB, CP or no other associated symptom's, modifiers, recent injuries or sick contact at this time. Chief Complaint: Urinary Time Seen by MD: 08:30 Reviewed Notes: Nurses Notes, Medications, Allergies Allergies: Coded Allergies: NO KNOWN ALLERGIES (Unverified , 06/01/24) Home Meds Active Scripts Sulfamethoxazole W/Trimethopri (Bactrim Ds Tablet) 1 Tab Tb, 1 TAB PO BID for 7 Days, #14 TAB Prov:SHANA MILLER MD 07/11/24 Reported Medications Cholecalciferol (VITAMIN D3) 2,000 Unit Tab, 1 TAB PO DAILY for supplement, #30 TAB 5 Refills 06/01/24 Lisinopril (Lisinopril) 20 Mg Tab, 20 MG PO DAILY for HTN for 30 Days, MG 03/22/24 Information Source: Patient, Spouse Mode of Arrival: Wheelchair Severity: Moderate Timing: Hours Duration: Since onset, Hours Prehospital treatment: None Past Medical History PAST MEDICAL HISTORY: HTN Surgical History: , Hysterectomy 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 Family History Family History: Reviewed,noncontributory to illness, Unknown Social History Smoker: Non-Smoker Alcohol: Denies ETOH Use Drugs: Denies Drug Use Lives In: Home Constitutional: denies: chills, diaphoresis, fatigue, fever, malaise, sweats, weakness, others EENTM: denies: blurred vision, double vision, ear bleeding, ear discharge, ear drainage, ear pain, ear ringing, eye pain, eye redness, hearing loss, mouth pain, mouth swelling, nasal discharge, nose bleeding, nose congestion, nose pain, photophobia, tearing, throat pain, throat swelling, voice changes, others Respiratory: denies: cough, hemoptysis, orthopnea, SOB at rest, shortness of breath, SOB with excertion, stridor, wheezing, others Cardiovascular: denies: chest pain, dizzy spells, diaphoresis, Dyspnea on exertion, edema, irregular heart beat, left arm pain, lightheadedness, palpitations, PND, syncope, others Gastrointestinal: denies: abdomen distended, abdominal pain, blood streaked bowels, constipated, diarrhea, dysphagia, difficulty swallowing, hematemesis, melena, nausea, poor appetite, poor fluid intake, rectal bleeding, rectal pain, vomiting, others Genitourinary: reports: pain, urgency; denies: abnormal vagina bleeding, burning, dyspareunia, dysuria, flank pain, frequency, hematuria, incontinence, , vagina discharge, others Neurological: denies: dizziness, fainting, headache, left sided numbness, left sided weakness, numbness, paresthesia, pre-existing deficit, right sided numbness, right sided weakness, seizure, speech problems, tingling, tremors, wea kness, others Musculoskeletal: denies: back pain, gout, joint pain, joint swelling, muscle pain, muscle stiffness, neck pain, others Integumetry: denies: bruises, change in color, change in hair/nails, dryness, l aceration, lesions, lumps, rash, wounds, others Allergic/Immunocompromised: denies: Difficulty Healing, Frequent Infections, Hives, Itching, others Hematologic/Lymphatic: denies: anemia, blood clots, easy bleeding, easy bruising, swollen glands, others Endocrine: denies: excessive hunger, excessive sweating, excessive thirst, excessive urination, flushing, intolerance to cold, intolerance to heat, unexplained weight gain, unexplained weight loss, others Psychiatric: denies: anxiety, bipolar disorder, depression, hopeless, panic disorder, schizophrenia, sleepless, suicidal, others All Other Systems: Reviewed and Negative Physical Exam General Appearance: Moderate Distress, Normal HEENT: Normal ENT Inspection, Pharynx Normal, TMs Normal Neck: Full Range of Motion, Non-Tender, Normal, Normal Inspection Respiratory: Chest Non-Tender, Lungs Clear, No Accessory Muscle Use, No Respiratory Distress, Normal Breath Sounds Cardiovascular: No Edema, No JVD, No Murmur, No Gallop, Normal Peripheral Pulses, Regular Rate/Rhythm Breast Exam: Deferred Gastrointestinal: No Organomegaly, Non Tender, No Pulsatile Mass, Normal Bowel Sounds, Soft Genitalia: Deferred Pelvic: Deferred Rectal: Deferred Extremities: No calf tenderness, Normal capillary refill, Normal inspection, Normal range of motion, Non-tender, No pedal edema Musculoskeletal : Apperance: Normal Neurologic: Alert, waste management recycling technician II-XII nml as Tested, No Motor Deficits, Normal Affect, Normal Mood, No Sensory Deficits Cerebellar Function: Normal Reflexes: Normal Skin: Dry, Normal Color, Warm Peripheral Pulses: 3+ Radial (R), 3+ Radial (L) Lymphatic: No Adenopathy Was a procedure done? Was a procedure done?: No Differential Dx Considerations may include: Urinary tract infection X-Ray, Labs, Meds, VS Vital Signs Date Time Temp Pulse Resp B/P (MAP) Pulse Ox O2 Delivery O2 Flow Rate FiO2 07/11/24 11:35 82 20 95 Room Air 07/11/24 11:35 98.3 82 20 100/66 (77) 95 98.3 07/11/24 08:20 97.8 76 20 116/69 (85) 100 Lab Test 07/11/24 09:00 Range/Units Urine Color Light-yellow Yellow Urine Clarity Clear Clear Urine pH 6.5 5.0-9.0 Urine Specific [place] 1.009 1.001-1.035 Urine Protein Negative Negative Urine Ketones Negative Negative Urine Blood 3+ H Negative /uL Urine Nitrite Negative Negative Urine Bilirubin Negative Negative Urine Urobilinogen Normal Negative mg/dL Urine Leukocyte Esterase Negative Negative /uL Urine RBC 8 0 - 4 /hpf Urine Microscopic WBC 4 0-5 /HPF Urine Squamous Epithelial Cells None seen <5 /hpf Urine Bacteria Few H None Seen /hpf Urine Glucose Normal Normal mg/dL Current Medications Medications (Trade) Dose Ordered Sig/Cheryl Route Start Time Stop Time Status Last Admin Acetaminophen/ Hydrocodone Bitart ([place] 5/325MG Tab) 1 tab ONCE ONCE PO 07/11/24 11:30 07/11/24 11:31 DC 07/11/24 11:33 Patient alert. Head recent urologic surgery. Vitals stable. Answering questions. Urinalysis shows mild urinary tract infection. Was given potential Bactrim. Spoke with urology. Nicole catheter placed. Placed a leg bag. Urology recommended to discharge with follow up in their clinic. Explained to the patient. Was told to follow up with her primary care physician. Was told to come back if there is any problem. Time of 1ST Reevaluation: 09:00 Reevaluation 1ST: Unchanged Patient Education/Counseling: Diagnosis, Treatment, Prognosis Family Education/Counseling: No Family Present Departure 1 Departure Time of Disposition: 11:20 Impression: Primary Impression: Urinary retention Additional Impression: UTI (urinary tract infection) Qualified Codes: N30.01 - Acute cystitis with hematuria Disposition: HOME / SELF CARE / HOMELESS Condition: Good e-Prescriptions Sulfamethoxazole W/Trimethopri (Bactrim Ds Tablet) 1 Tab Tb 1 TAB PO BID for 7 Days, #14 TAB Prov: SHANA MILLER MD 07/11/24 Discharged With: Self Critical Care Note Critical Care Time?: No Stability Stability form required: No Heart Score Heart Score: Heart Score Response (Comments) Value History N/A 0 EKG N/A 0 Age N/A 0 Risk Factors N/A 0 Troponin N/A 0 Total 0 I personally scribed for SHANA MILLER MD ([email or web address]) on 07/11/24 at 09:08. Electronically submitted by Ike Robertson ([email or web address]). SHANA MILLER MD Jul 11, 2024 09:08
[2024-07-11 09:48] LABS: Urine Bacteria FEW /hpf (None Seen); Urine Blood 3+ /uL (Negative); Urine Clarity Clear (Clear); Urine Color Light-Yellow (Yellow); Urine Protein, UAD Negative (Negative); Urine Specific Gravity 1.009 (1.001-1.035); Urine Squamous Epithelial Cell None Seen /hpf (<5); Urine Urobilinogen Normal (Negative); Urine WBC 4 /HPF (0-5); Urine pH 6.5 (5.0-9.0)
[2024-07-11] MEDS ORDERED: BACDST PO (11:21)
[2024-07-11] MEDS: HYDROcodone-ACET 5/325MG TAB PO ONE (11:33)
[2024-07-11 11:35] VITALS: BP 100/66; PULSE 82; RESP 20; TEMP 98.3; O2SAT 95
== END 2024-07-11 11:43 | disposition home or self-care (01) ==
LOC: ER 08:13
DX: N39.0 Urinary tract infection, site not specified (principal); I10 Essential (primary) hypertension; Z79.899 Other long term (current) drug therapy; Z90.710 Acquired absence of both cervix and uterus; Z98.890 Other specified postprocedural states
CPT/HCPCS: 51702; 81001

== ENCOUNTER 2024-10-04 06:15 | Inpatient (IN) | payer OTHER, MEDICAID ==
[2024-10-02 13:45] LABS: Urine Bacteria None Seen /hpf (None Seen)
[2024-10-02 13:49] LABS: Basophils # (auto) 0.1 10 ^3/uL (0-0.2); Basophils % (auto) 0.9 % (0.0-2.0); Eosinophils # (auto) 0.2 10 ^3/uL (0-0.8); Hematocrit 39.3 % (36.0-46.0); Hemoglobin 13.3 g/dL (12.2-16.2); Lymphocytes # (auto) 1.7 10 ^3/uL (0.4-5.4); Lymphocytes % (auto) 30.7 % (10.0-50.0); Mean Corpuscular Hemoglobin 28.3 pg (28.0-32.0); Mean Corpuscular Hgb Conc. 33.8 g/dL (32.0-36.0); Mean Corpuscular Volume 83.6 fL (80.0-100.0); Monocytes # (auto) 0.3 10 ^3/uL (0-1.3); Monocytes % (auto) 6.1 % (0.0-12.0); Neutrophils # (auto) 3.3 10 ^3/uL (1.6-8.6); Neutrophils % (auto) 59.3 % (37.0-80.0); Nucleated Red Blood Cells % 0.1 %; Platelet Count (auto) 258 10^3/uL (140-450); White Blood Cell 5.6 10^3/uL (4.4-10.8)
[2024-10-02 14:08] LABS: INR 0.98 (0.9-1.15); Partial Thromboplastin Time 27.2 SEC (24.5-34.5); Prothrombin Time 10.4 sec (9.3-11.8)
[2024-10-02 14:20] LABS: Alanine Aminotransferase 26 U/L (7-40); Albumin 4.7 g/dL (3.2-4.8); Alkaline Phosphatase 104 U/L (46-116); Anion Gap 6 (5-15); Aspartate Aminotransferase 17 U/L (13-40); Bilirubin, Total 0.7 mg/dL (0.2-1.0); Blood Urea Nitrogen 11 mg/dL (9-23); Calcium 9.8 mg/dL (8.7-10.4); Carbon Dioxide 31 mmol/L (20-31); Chloride 106 mmol/L (98-107); Glucose 105 mg/dL (74-106); Potassium 4.3 mmol/L (3.5-5.1); Sodium 143 mmol/L (136-145); Total Protein 7.6 g/dL (5.7-8.2)
[2024-10-02 14:29] LABS: Urine Blood Negative /uL (Negative); Urine Clarity Clear (Clear); Urine Color Light-Yellow (Yellow); Urine Protein, UAD Negative (Negative); Urine Squamous Epithelial Cell FEW /hpf (<5); Urine Urobilinogen Normal (Negative); Urine WBC 1 /HPF (0-5); Urine pH 6.5 (5.0-9.0)
[~2024-10-04] VITALS: Ht 162.6 cm; Wt 101.6 kg
[2024-10-04] VITALS (7 sets, daily range): BP systolic 108–118; BP diastolic 51–72; PULSE 62–77; RESP 12–18; TEMP 97.4–97.9; O2SAT 18–98
[~2024-10-04 06:15] MED LIST changes: +POTA-36 PO
[2024-10-04] MEDS: ceFAZolin 2 GM/D5W50ml 50 ML IV ONE (07:09)
[2024-10-04] MEDS ORDERED: HYDROmorphone HCL 2 MG/ML VL/or syr ONE (07:52)
[2024-10-04] MEDS ORDERED: MIDAZOLAM HCL 2MG/2ML 2ml VIAL (1mg/ml) ONE (07:52)
[2024-10-04] MEDS ORDERED: fentaNYL CITRATE 100 MCG/2 ML VL ONE (07:52)
[2024-10-04] MEDS ORDERED: SUGAMMADEX 200mg/2ml Vial (100MG/ML) IV ONE (08:41)
[2024-10-04] MEDS ORDERED: PROPOFOL 10 MG/ML 20 ML IV ONE ×2 (08:41→09:25)
[2024-10-04] MEDS ORDERED: ONDANSETRON HCL 4 MG/2 ML VIAL ONE (08:41)
[2024-10-04] MEDS ORDERED: ROCURONIUM 10MG/ML 10ML VIAL IV ONE (08:41)
[2024-10-04] MEDS ORDERED: DexAMETHasone SOD PHOS 10MG/1ML VIAL INJ ONE (08:41)
[2024-10-04] MEDS: HYDROmorphone HCL 2 MG/ML VL/or syr IV PRN ×2 (09:25→09:40)
[2024-10-04] MEDS: ACETAMINOPHEN IV 1000 MG/100ML (10MG/ML) IV ONE (09:28)
[2024-10-04] MEDS ORDERED: ePHEDrine SULFATE 50 MG/ML AMP IV PRN (09:30)
[2024-10-04] MEDS ORDERED: hydrALAZINE HCL 20 MG/ML VL IV PRN (09:30)
[2024-10-04] MEDS: ONDANSETRON HCL 4 MG/2 ML VIAL IV ONE (09:30)
[2024-10-04] MEDS: MORPHINE SULFATE 4 MG/ML SYR/VIAL IV PRN (09:30)
[2024-10-04] MEDS: MIDAZOLAM HCL 2MG/2ML 2ml VIAL (1mg/ml) IV PRN (09:35)
[2024-10-04] MEDS: HYDROmorphone HCL 2 MG/ML VL/or syr ONE (09:51)
--- NOTE | 2024-10-04 09:55 | DVHOP ---
DATE OF SURGERY: 10/04/2024 PREOPERATIVE DIAGNOSES: Cholelithiasis, cholecystitis. POSTOPERATIVE DIAGNOSES: Cholelithiasis, cholecystitis. SURGEON: Alex Wick MD HARPSICHORD MAKER: Abhinav Gay NP ANESTHESIA: General endotracheal, Dr. Sam PROCEDURE: Laparoscopy, laparoscopic cholecystectomy. DESCRIPTION OF PROCEDURE: Under general endotracheal anesthesia with the patient's skin prepped and draped, a supraumbilical incision was made and a Veress needle utilized to establish pneumoperitoneum. The needle was inserted into the peritoneal cavity by the hanging drop technique and the insufflation accomplished to 15 mmHg pressure. The patient's abdomen was fully distended. The needle was removed and replaced with a 5-mm trocar port through which a 0-degree viewing laparoscope was inserted and under direct vision additional ports were inserted through the right anterior axillary line at the level of the umbilicus and there was a subxiphoid midline skin 5 mm and 10 mm ports respectively. Instrumentation was then introduced and the patient's laparoscopy was performed. It was hampered by the patient's morbid obesity; however, no obvious unexpected pathology was encountered on serosal surfaces visualized. The gallbladder was affected by chronic cholecystitis. Multiple adhesions between the gallbladder and the omentum were lysed sharply and bluntly. Numerous Jefd-Vjwm-Dmzifg like adhesions between the anterior abdominal wall and the superior aspects of the right lobe of the liver were encountered and were lysed sharply and bluntly as well. Subsequently, the gallbladder was placed on tension, grasped at the infundibular portion, and placed cephalad. The cystic duct was exceedingly short. The cystic duct and cystic artery were identified, circumferentially dissected, skeletonized, and traced into the hepaticocystic triangle so as to minimize the potential for inadvertent injury to the common bile duct. Cystic duct and artery were then divided close to the gallbladder, again attempting to protect the common duct from injury. Following division of the cystic duct and cystic artery, the gallbladder was resected from its liver bed by electrocautery and traction and the fully mobilized gallbladder was removed from the peritoneal cavity by placement in a specimen extraction bag, which was withdrawn through the subxiphoid 10 mm port site. With the gallbladder removed from the peritoneal cavity, the right upper quadrant was irrigated. Irrigant was aspirated. Hemostasis was meticulously accomplished and found to be complete at the termination of the procedure. There was no evidence of bleeding from either the liver bed at the site of the cholecystectomy or from the port sites. The patient's subhepatic space was drained by means of a 10-mm port drain, which was exteriorized through the right lower quadrant 5 mm port site and secured with a 2-0 nylon suture. Following assurance of complete hemostasis, instrumentation and pneumoperitoneum was evacuated. Fascial defect closed using #0 Vicryl. Approximation of the wound was accomplished using Monocryl sutures, Dermabond glue, and Steri-Strips. The patient remained stable throughout the procedure, left the operating room following an accurate needle and sponge counts. Her daughter, Shaye, was thoroughly informed at [phone]. Alex Wick MD PF/MARRY TID: [id number] RECEIPT: [id number]
[2024-10-04] MEDS: D5W/SOD CHL 0.45%/KCL 20MEQ 1,000 ML IV SCH (10:09)
[2024-10-04] MEDS ORDERED: NITROGLYCERIN 0.4 MG SL TAB SL PRN (11:15)
[2024-10-04] MEDS ORDERED: MORPHINE SULFATE 4 MG/ML SYR/VIAL IV PRN (12:00)
--- NOTE | 2024-10-04 14:12 | DVHHP2 ---
Review of Systems Allergies: Coded Allergies: NO KNOWN ALLERGIES (Unverified , 06/01/24) Medications Current Medications Medications Dose Ordered Sig/Cheryl Route Start Time Stop Time Status Last Admin Dose Admin Potassium Chloride/Dextrose/ Sod Cl 1,000 ml @ 120 mls/hr Q8H20M IV 10/04/24 09:15 10/04/24 10:09 120 MLS/HR Cefazolin Sodium/ Dextrose 50 ml @ 50 mls/hr Q8HR IV 10/04/24 14:00 Metronidazole 100 ml @ 100 mls/hr Q8HR IV 10/04/24 14:00 Hydromorphone HCl 1 mg Q3HPRN PRN IV 10/04/24 09:15 10/04/24 12:50 1 MG Acetaminophen/ Codeine Phosphate 1 tab Q4HP PRN PO 10/04/24 09:15 Nitroglycerin 0.4 mg Q5MINP PRN SL 10/04/24 11:15 Morphine Sulfate 2 mg Q30M PRN IV 10/04/24 12:00 Exam Vital Signs Vital Signs Date Time Temp Pulse Resp B/P (MAP) Pulse Ox O2 Delivery O2 Flow Rate FiO2 10/04/24 12:50 63 17 102/59 10/04/24 12:31 97.9 97 97.9 10/04/24 10:00 Nasal Cannula 2.0 10/04/24 10:00 98 Labs/Xrays Labs Test 10/02/24 13:40 Range/Units White Blood Count 5.6 4.4-10.8 10^3/uL Red Blood Count 4.70 4.0-5.20 10^6/uL Hemoglobin 13.3 12.2-16.2 g/dL Hematocrit 39.3 36.0-46.0 % Mean Corpuscular Volume 83.6 80.0-100.0 fL Mean Corpuscular Hemoglobin 28.3 28.0-32.0 pg Mean Corpuscular Hemoglobin Concent 33.8 32.0-36.0 g/dL Red Cell Distribution Width 14.0 11.8-14.3 % Platelet Count 258 140-450 10^3/uL Mean Platelet Volume 7.9 6.9-10.8 fL Neutrophils (%) (Auto) 59.3 37.0-80.0 % Lymphocytes (%) (Auto) 30.7 10.0-50.0 % Monocytes (%) (Auto) 6.1 0.0-12.0 % Eosinophils (%) (Auto) 3.0 0.0-7.0 % Basophils (%) (Auto) 0.9 0.0-2.0 % Neutrophils # (Auto) 3.3 1.6-8.6 10 ^3/uL Lymphocytes # (Auto) 1.7 0.4-5.4 10 ^3/uL Monocytes # (Auto) 0.3 0-1.3 10 ^3/uL Eosinophils # (Auto) 0.2 0-0.8 10 ^3/uL Basophils # (Auto) 0.1 0-0.2 10 ^3/uL Nucleated Red Blood Cells 0.1 % Prothrombin Time 10.4 9.3-11.8 sec Prothrombin Time INR 0.98 0.9-1.15 Activated Partial Thromboplast Time 27.2 24.5-34.5 SEC Urine Color Light-yellow Yellow Urine Clarity Clear Clear Urine pH 6.5 5.0-9.0 Urine Specific [place] 1.020 1.001-1.035 Urine Protein Negative Negative Urine Ketones Negative Negative Urine Blood Negative Negative /uL Urine Nitrite Negative Negative Urine Bilirubin Negative Negative Urine Urobilinogen Normal Negative mg/dL Urine Leukocyte Esterase 1+ Negative /uL Urine RBC 1 0 - 4 /hpf Urine Microscopic WBC 1 0-5 /HPF Urine Squamous Epithelial Cells Few <5 /hpf Urine Bacteria None seen None Seen /hpf Urine Glucose Normal Normal mg/dL Sodium Level 143 136-145 mmol/L Potassium Level 4.3 3.5-5.1 mmol/L Chloride Level 106 98-107 mmol/L Carbon Dioxide Level 31 20-31 mmol/L Anion Gap 6 5-15 Blood Urea Nitrogen 11 9-23 mg/dL Creatinine 0.61 0.550-1.02 mg/dL Glomerular Filtration Rate Calc 99 >90 mL/min BUN/Creatinine Ratio 18.0 10.0-20.0 Serum Glucose 105 74-106 mg/dL Calcium Level 9.8 8.7-10.4 mg/dL Total Bilirubin 0.7 0.2-1.0 mg/dL Aspartate Amino Transferase (AST) 17 13-40 U/L Alanine Aminotransferase (ALT) 26 7-40 U/L Alkaline Phosphatase 104 46-116 U/L Total Protein 7.6 5.7-8.2 g/dL Albumin 4.7 3.2-4.8 g/dL Assessment/Plan Assessment/Plan see dictated note Plan discussed with: Patient My Orders Orders - CARISA DURANT MD Procedure Category Date Status Time Admit ADMIT 10/04/24 Transmitted 11:15 Oxygen By Nasal RT 10/04/24 Transmitted Cannula 11:15 Nitroglycerin PHA 10/04/24 In Process Sublingual (Ntrostat 11:15 Stat Ekg For Chest LARRY 10/04/24 In Process Pain 11:15 Notify Md Of Changes [facility] 10/04/24 In Process From Base 11:15 Briquetter Operator For [facility] 10/04/24 In Process 24 Hours 11:15 Emergency Dysrhythmia [facility] 10/04/24 In Process Protocol 11:15 Rhythm Strips Once [facility] 10/04/24 In Process Every Shift 11:15 Morphine Sulfate [facility] 10/04/24 In Process Injection 12:00 Date of Service: October 04, 2024 Billing Provider: CARISA DURANT MD Common Visit Codes: 26508-[id number] INP/OBS CARE (HIGH) Secondary Visit Codes: 06021-AXVBRNDA CARE PLAN 30 MINUTES CARISA DURANT MD October 04, 2024 14:12
[2024-10-04] MEDS ORDERED: ONDANSETRON HCL 4 MG/2 ML VIAL IV PRN (14:15)
--- NOTE | 2024-10-04 14:43 | DVHHP ---
ADMIT DATE: 10/04/2024 HISTORY OF PRESENT ILLNESS: The patient is a 68-year-old lady who was admitted after she underwent laparoscopic cholecystectomy for cholelithiasis and chronic cholecystitis. The patient at this time denies any significant pain. No chest pain, no shortness of breath, no nausea or vomiting. REVIEW OF SYSTEMS: Review of rest of systems otherwise currently negative. PAST MEDICAL HISTORY: Significant for hypertension. MEDICATIONS: She takes lisinopril and potassium. ALLERGIES: No known drug allergies. SOCIAL HISTORY: Denies smoking or alcohol. Lives at home with family. FAMILY HISTORY: Negative. PHYSICAL EXAMINATION: GENERAL: The patient is awake, alert. VITAL SIGNS: Temperature 97.9, pulse 64 per minute, blood pressure 102/59. SHEENT: Unremarkable. NECK: There is no JVD. No pedal edema. LUNGS: Lungs are equal bilaterally. No added sounds. CARDIOVASCULAR: S1 and S2 is regular. No murmurs. ABDOMEN: Soft. Bowel sounds are hypoactive. There is a LUIS drain in place. NEUROLOGIC: Nonfocal. MUSCULOSKELETAL: Normal. ASSESSMENT AND PLAN: * Hypertension, for which the patient's blood pressure will be monitored. * Obesity. * Status post laparoscopic cholecystectomy for cholelithiasis and chronic cholecystitis. The patient will be placed on IV antibiotics and a clear liquid diet along with IV fluids. * Advanced care planning. The patient is a full code-Time spent was 18 minutes. MD TATA Mehta/NAHEED TID: [id number] RECEIPT: [id number] MTD
[2024-10-04] MEDS: ceFAZolin 2 GM/D5W50ml 50 ML IV SCH (14:48)
[2024-10-04] MEDS: metroNIDAZOLE 500MG/100ML 100 ML IV SCH (16:09)
[2024-10-04] MEDS: ACETAMINOPHEN/CODEINE#3 (300/30mg) TAB PO PRN (16:22)
[2024-10-05] VITALS (7 sets, daily range): BP systolic 102–144; BP diastolic 51–73; PULSE 59–85; RESP 17–20; TEMP 97.9–98.7; O2SAT 94–98
[2024-10-05 06:54] LABS: Basophils # (auto) 0 10 ^3/uL (0-0.2); Basophils % (auto) 0.1 % (0.0-2.0); Eosinophils # (auto) 0 10 ^3/uL (0-0.8); Hematocrit 32.4 % (36.0-46.0); Hemoglobin 10.9 g/dL (12.2-16.2); Lymphocytes # (auto) 1.1 10 ^3/uL (0.4-5.4); Lymphocytes % (auto) 10.1 % (10.0-50.0); Mean Corpuscular Hemoglobin 27.9 pg (28.0-32.0); Mean Corpuscular Hgb Conc. 33.6 g/dL (32.0-36.0); Monocytes # (auto) 0.6 10 ^3/uL (0-1.3); Monocytes % (auto) 5.8 % (0.0-12.0); Neutrophils # (auto) 9.3 10 ^3/uL (1.6-8.6); Platelet Count (auto) 228 10^3/uL (140-450); Red Blood Cells 3.91 10^6/uL (4.0-5.20); Red Cell Distribution Width 14.4 % (11.8-14.3)
[2024-10-05 07:01] LABS: Alanine Aminotransferase 31 U/L (7-40); Alkaline Phosphatase 85 U/L (46-116); Anion Gap 7 (5-15); BUN/Creatinine Ratio 14.8 (10.0-20.0); Calcium 9.7 mg/dL (8.7-10.4); Carbon Dioxide 27 mmol/L (20-31); Sodium 143 mmol/L (136-145); Total Protein 6.4 g/dL (5.7-8.2)
[2024-10-05 07:02] LABS: Albumin 3.9 g/dL (3.2-4.8); Aspartate Aminotransferase 23 U/L (13-40); Bilirubin, Total 0.8 mg/dL (0.2-1.0)
[2024-10-05 07:03] LABS: Blood Urea Nitrogen 8 mg/dL (9-23); Chloride 109 mmol/L (98-107); Glucose 125 mg/dL (74-106)
--- NOTE | 2024-10-05 12:20 | DVHPN2 ---
Subjective Seen and examined at bedside. s/p Lap Choley POD1. LUIS drain in place. Changes from previous H/P or p: No Changes Objective Vitals Vital Signs Date Time Temp Pulse Resp B/P (MAP) Pulse Ox O2 Delivery O2 Flow Rate FiO2 10/05/24 09:00 97.9 59 17 107/51 (69) 97 97.9 10/05/24 08:00 Nasal Cannula* 2 28 Intake/Output Intake and Output 10/05/24 07:00 Intake Total 2100 ml Output Total 150 ml Balance 1950 ml Intake Oral 800 ml IV Total 1300 ml Output Drainage Total 150 ml # Voids 3 General Appearance: Alert, Oriented X3, Cooperative, No acute distress Lungs: Clear to auscultation Cardiovascular: Regular rate, Normal S1, Normal S2 Abdomen: Normal bowel sounds, Other (LUIS Drain +) Psych/Mental Status: Mental status NL Medications Current Medications Medications Dose Ordered Sig/Cheryl Route Start Time Stop Time Status Last Admin Dose Admin Potassium Chloride/Dextrose/ Sod Cl 1,000 ml @ 120 mls/hr Q8H20M IV 10/04/24 09:15 10/05/24 01:37 120 MLS/HR Cefazolin Sodium/ Dextrose 50 ml @ 50 mls/hr Q8HR IV 10/04/24 14:00 10/05/24 05:28 50 MLS/HR Metronidazole 100 ml @ 100 mls/hr Q8HR IV 10/04/24 14:00 10/05/24 06:41 100 MLS/HR Hydromorphone HCl 1 mg Q3HPRN PRN IV 10/04/24 09:15 10/04/24 21:20 1 MG Acetaminophen/ Codeine Phosphate 1 tab Q4HP PRN PO 10/04/24 09:15 10/05/24 06:40 1 TAB Nitroglycerin 0.4 mg Q5MINP PRN SL 10/04/24 11:15 Morphine Sulfate 2 mg Q30M PRN IV 10/04/24 12:00 Ondansetron HCl 4 mg Q6HPRN PRN IV 10/04/24 14:15 Lisinopril 20 mg DAILY PO 10/05/24 11:45 Laboratory Results Laboratory Tests 10/05/24 06:02 Chemistry Test 10/05/24 06:02 Albumin 3.9 g/dL (3.2-4.8) Calcium Level 9.7 mg/dL (8.7-10.4) Total Protein 6.4 g/dL (5.7-8.2) LFT Test 10/05/24 06:02 Alanine Aminotransferase (ALT) 31 U/L (7-40) Alkaline Phosphatase 85 U/L (46-116) Aspartate Amino Transferase (AST) 23 U/L (13-40) Total Bilirubin 0.8 mg/dL (0.2-1.0) Urinalysis Test 10/02/24 13:40 Urine Color Light-yellow (Yellow) Urine Clarity Clear (Clear) Urine pH 6.5 (5.0-9.0) Urine Specific [place] 1.020 (1.001-1.035) Urine Protein Negative (Negative) Urine Ketones Negative (Negative) Urine Blood Negative /uL (Negative) Urine Nitrite Negative (Negative) Urine Bilirubin Negative (Negative) Urine Urobilinogen Normal mg/dL (Negative) Urine Leukocyte Esterase 1+ /uL (Negative) Urine RBC 1 /hpf (0 - 4) Urine Microscopic WBC 1 /HPF (0-5) Urine Squamous Epithelial Cells Few /hpf (<5) Urine Bacteria None seen /hpf (None Seen) Urine Glucose Normal mg/dL (Normal) Assessment/Plan Assessment/Plan * Hypertension, for which the patient's blood pressure will be monitored. * Obesity. * Status post laparoscopic cholecystectomy for cholelithiasis and chronic cholecystitis. The patient will be placed on IV antibiotics and a clear liquid diet along with IV fluids. * Advanced care planning. The patient is a full code. Plan discussed with: Patient My Orders Orders - KEVYN CABRAL MD Procedure Category Date Status Time Lisinopril Tablet PHA 10/05/24 In Process (Zestril Tablet) 11:45 Date of Service: October 05, 2024 Billing Provider: KEVYN CABRAL MD Common Visit Codes: [id number] INP/OBS CARE(HIGH) KEVYN CABRAL MD October 05, 2024 12:20
[2024-10-05] MEDS: LISINOPRIL 20 MG TAB PO SCH (12:44)
--- NOTE | 2024-10-05 14:07 | DVHPN2 ---
Subjective Date Seen: October 05, 2024 Post op day Post op day: 1 Patient reports: No new complaints Nursing reports: No new complaints General: Normal HNT: Normal Cardiovascular: Normal Respiratory: Normal Gastrointestinal: Normal Genitourinary: Normal Musculoskeletal: Normal Neurological: Normal Objective Vitals Vital Sign Date Time Temp Pulse Resp B/P (MAP) Pulse Ox O2 Delivery O2 Flow Rate FiO2 10/05/24 12:44 144/73 10/05/24 09:00 97.9 59 17 97 97.9 10/05/24 08:00 Nasal Cannula* 2 28 Total Intake and Output 10/04/24 10/04/24 10/05/24 15:00 23:00 07:00 Intake Total 1500 ml 600 ml Output Total 60 ml 90 ml Balance -60 ml 1500 ml 510 ml Medications Current Medications Medications Dose Ordered Sig/Cheryl Route Start Time Stop Time Status Last Admin Dose Admin Potassium Chloride/Dextrose/ Sod Cl 1,000 ml @ 120 mls/hr Q8H20M IV 10/04/24 09:15 10/05/24 12:44 120 MLS/HR Cefazolin Sodium/ Dextrose 50 ml @ 50 mls/hr Q8HR IV 10/04/24 14:00 10/05/24 05:28 50 MLS/HR Metronidazole 100 ml @ 100 mls/hr Q8HR IV 10/04/24 14:00 10/05/24 06:41 100 MLS/HR Hydromorphone HCl 1 mg Q3HPRN PRN IV 10/04/24 09:15 10/04/24 21:20 1 MG Acetaminophen/ Codeine Phosphate 1 tab Q4HP PRN PO 10/04/24 09:15 10/05/24 12:51 1 TAB Nitroglycerin 0.4 mg Q5MINP PRN SL 10/04/24 11:15 Morphine Sulfate 2 mg Q30M PRN IV 10/04/24 12:00 Ondansetron HCl 4 mg Q6HPRN PRN IV 10/04/24 14:15 Lisinopril 20 mg DAILY PO 10/05/24 11:45 10/05/24 12:44 20 MG General: Normal, Well developed Head/Eyes: Normal ENT: Normal Neck: Normal Lungs: Normal Cardiovascular: Normal Abdominal: Normal, Soft Musculoskeletal: Normal Skin: Normal Labs and Microbiology Laboratory Tests 10/05/24 06:02 Test 10/05/24 06:02 Range/Units Serum Glucose 125 H 74-106 mg/dL Ass/Plan Labs and/or images reviewed: Labs reviewed by me Assessment/Plan s/p laparoscopic cholecystectomy POD#1 abdomen soft, non distended, appropriately tender tolerating diet, no nausea , no vomiting wounds clean dry and intact Plan: ok to discharge in 24 hours patient to ambulate advance diet as tolerated patient to follow up in clinic in two weeks discussed with Dr. Wick and agrees with plan Prognosis: Good Plan discussed with patient , Dr. Wick Visit Coding Surgery Date of Service if different f: October 05, 2024 Billing Provider: GEMMA WICK MD Surgery Visit Codes: [id number] INP/OBS CARE(HIGH) MASHA MICHELE PAYROLL MANAGER October 05, 2024 14:07
[2024-10-05] MEDS: ACETAMINOPHEN 325 MG TAB PO PRN (23:32)
[2024-10-06 01:00] VITALS: BP 144/72; PULSE 95; RESP 20; TEMP 99.8; O2SAT 97
[2024-10-06 05:00] VITALS: BP 140/66; PULSE 83; RESP 18; TEMP 98; O2SAT 97
--- NOTE | 2024-10-06 07:25 | DVHPN2 ---
Subjective Date Seen: October 06, 2024 Post op day Post op day: 2 Patient reports: No new complaints Nursing reports: No new complaints General: Normal HNT: Normal Cardiovascular: Normal Respiratory: Normal Gastrointestinal: Normal Genitourinary: Normal Musculoskeletal: Normal Neurological: Normal Objective Vitals Vital Sign Date Time Temp Pulse Resp B/P (MAP) Pulse Ox O2 Delivery O2 Flow Rate FiO2 10/06/24 05:00 98.0 83 18 140/66 (90) 97 98.0 10/05/24 20:00 Room Air* 0 21 Total Intake and Output 10/05/24 10/05/24 10/06/24 15:00 23:00 07:00 Intake Total 1150 ml 1450 ml 750 ml Output Total 20 ml Balance 1150 ml 1450 ml 730 ml Medications Current Medications Medications Dose Ordered Sig/Cheryl Route Start Time Stop Time Status Last Admin Dose Admin Potassium Chloride/Dextrose/ Sod Cl 1,000 ml @ 120 mls/hr Q8H20M IV 10/04/24 09:15 10/05/24 23:14 120 MLS/HR Cefazolin Sodium/ Dextrose 50 ml @ 50 mls/hr Q8HR IV 10/04/24 14:00 10/06/24 06:30 50 MLS/HR Metronidazole 100 ml @ 100 mls/hr Q8HR IV 10/04/24 14:00 10/06/24 05:21 100 MLS/HR Hydromorphone HCl 1 mg Q3HPRN PRN IV 10/04/24 09:15 10/04/24 21:20 1 MG Acetaminophen/ Codeine Phosphate 1 tab Q4HP PRN PO 10/04/24 09:15 10/05/24 17:02 1 TAB Nitroglycerin 0.4 mg Q5MINP PRN SL 10/04/24 11:15 Morphine Sulfate 2 mg Q30M PRN IV 10/04/24 12:00 Ondansetron HCl 4 mg Q6HPRN PRN IV 10/04/24 14:15 Lisinopril 20 mg DAILY PO 10/05/24 11:45 10/05/24 12:44 20 MG Acetaminophen 650 mg Q6HP PRN PO 10/05/24 23:30 10/05/24 23:32 650 MG General: Normal, Well developed, Obese Head/Eyes: Normal ENT: Normal Neck: Normal Lungs: Normal Cardiovascular: Normal Abdominal: Normal, Soft Musculoskeletal: Normal Skin: Normal Labs and Microbiology Test 10/06/24 05:41 Range/Units Serum Glucose Pending Ass/Plan Labs and/or images reviewed: Labs reviewed by me Assessment/Plan s/p laparoscopic cholecystectomy POD#1 abdomen soft, non distended, appropriately tender tolerating diet, no nausea , no vomiting wounds clean dry and intact Plan: ok to discharge in 24 hours patient to ambulate advance diet as tolerated patient to follow up in clinic in two weeks discussed with Dr. Wick and agrees with plan 10/06/24 s/p laparoscopic cholecystectomy POD#2 abdomen soft, non distended, appropriately tender tolerating diet, no nausea , no vomiting wounds clean dry and intact Plan: ok to discharge in 24 hours patient to ambulate advance diet as tolerated patient to follow up in clinic in two weeks discussed with Dr. Wick and agrees with plan Prognosis: Good Plan discussed with patient, Dr. Wick Visit Coding Surgery Date of Service if different f: October 06, 2024 Billing Provider: GEMMA WICK MD Surgery Visit Codes: [id number] INP/OBS CARE(HIGH) MASHA MICHELE NP October 06, 2024 07:25
[2024-10-06 07:41] LABS: Basophils # (auto) 0 10 ^3/uL (0-0.2); Basophils % (auto) 0.2 % (0.0-2.0); Eosinophils # (auto) 0 10 ^3/uL (0-0.8); Eosinophils % (auto) 0.3 % (0.0-7.0); Hematocrit 33.2 % (36.0-46.0); Hemoglobin 11.3 g/dL (12.2-16.2); Lymphocytes # (auto) 1.4 10 ^3/uL (0.4-5.4); Mean Corpuscular Hemoglobin 28.3 pg (28.0-32.0); Mean Corpuscular Hgb Conc. 34.1 g/dL (32.0-36.0); Mean Corpuscular Volume 83.1 fL (80.0-100.0); Monocytes # (auto) 0.6 10 ^3/uL (0-1.3); Monocytes % (auto) 7.4 % (0.0-12.0); Neutrophils # (auto) 5.9 10 ^3/uL (1.6-8.6); Neutrophils % (auto) 74.1 % (37.0-80.0); Platelet Count (auto) 208 10^3/uL (140-450); Red Cell Distribution Width 14.3 % (11.8-14.3); White Blood Cell 7.9 10^3/uL (4.4-10.8)
[2024-10-06 07:53] LABS: Alanine Aminotransferase 25 U/L (7-40); Albumin 4.3 g/dL (3.2-4.8); Alkaline Phosphatase 89 U/L (46-116); Anion Gap 8 (5-15); Aspartate Aminotransferase 16 U/L (13-40); BUN/Creatinine Ratio 9.4 (10.0-20.0); Calcium 9.8 mg/dL (8.7-10.4); Carbon Dioxide 28 mmol/L (20-31); Glucose 103 mg/dL (74-106); Potassium 3.7 mmol/L (3.5-5.1); Sodium 144 mmol/L (136-145)
[2024-10-06 07:54] LABS: Bilirubin, Total 1.3 mg/dL (0.2-1.0); Blood Urea Nitrogen 6 mg/dL (9-23); Chloride 108 mmol/L (98-107)
[2024-10-06 08:40] VITALS: BP 137/79; PULSE 76; RESP 17; TEMP 98.5; O2SAT 95
[2024-10-06] MEDS ORDERED: TRAM-626 PO (11:01)
--- NOTE | 2024-10-06 11:04 | DVHDS2 ---
Discharge Summary Date of Admission October 04, 2024 at 11:15 Date of Discharge: October 06, 2024 Admitting Diagnosis Cholelithiasis, cholecystitis. Labs/Diagnostic Data: Laboratory Results Test 10/06/24 05:41 10/02/24 13:40 White Blood Count 7.9 10^3/uL (4.4-10.8) Red Blood Count 4.00 10^6/uL (4.0-5.20) Hemoglobin 11.3 g/dL (12.2-16.2) Hematocrit 33.2 % (36.0-46.0) Mean Corpuscular Volume 83.1 fL (80.0-100.0) Mean Corpuscular Hemoglobin 28.3 pg (28.0-32.0) Mean Corpuscular Hemoglobin Concent 34.1 g/dL (32.0-36.0) Red Cell Distribution Width 14.3 % (11.8-14.3) Platelet Count 208 10^3/uL (140-450) Mean Platelet Volume 8.1 fL (6.9-10.8) Neutrophils (%) (Auto) 74.1 % (37.0-80.0) Lymphocytes (%) (Auto) 18.0 % (10.0-50.0) Monocytes (%) (Auto) 7.4 % (0.0-12.0) Eosinophils (%) (Auto) 0.3 % (0.0-7.0) Basophils (%) (Auto) 0.2 % (0.0-2.0) Neutrophils # (Auto) 5.9 10 ^3/uL (1.6-8.6) Lymphocytes # (Auto) 1.4 10 ^3/uL (0.4-5.4) Monocytes # (Auto) 0.6 10 ^3/uL (0-1.3) Eosinophils # (Auto) 0 10 ^3/uL (0-0.8) Basophils # (Auto) 0 10 ^3/uL (0-0.2) Nucleated Red Blood Cells 0.0 % Sodium Level 144 mmol/L (136-145) Potassium Level 3.7 mmol/L (3.5-5.1) Chloride Level 108 mmol/L (98-107) Carbon Dioxide Level 28 mmol/L (20-31) Anion Gap 8 (5-15) Blood Urea Nitrogen 6 mg/dL (9-23) Creatinine 0.64 mg/dL (0.550-1.02) Glomerular Filtration Rate Calc 97 mL/min (>90) BUN/Creatinine Ratio 9.4 (10.0-20.0) Serum Glucose 103 mg/dL (74-106) Calcium Level 9.8 mg/dL (8.7-10.4) Total Bilirubin 1.3 mg/dL (0.2-1.0) Aspartate Amino Transferase (AST) 16 U/L (13-40) Alanine Aminotransferase (ALT) 25 U/L (7-40) Alkaline Phosphatase 89 U/L (46-116) Total Protein 7.0 g/dL (5.7-8.2) Albumin 4.3 g/dL (3.2-4.8) Prothrombin Time 10.4 sec (9.3-11.8) Prothrombin Time INR 0.98 (0.9-1.15) Activated Partial Thromboplast Time 27.2 SEC (24.5-34.5) Urine Color Light-yellow (Yellow) Urine Clarity Clear (Clear) Urine pH 6.5 (5.0-9.0) Urine Specific [place] 1.020 (1.001-1.035) Urine Protein Negative (Negative) Urine Ketones Negative (Negative) Urine Blood Negative /uL (Negative) Urine Nitrite Negative (Negative) Urine Bilirubin Negative (Negative) Urine Urobilinogen Normal mg/dL (Negative) Urine Leukocyte Esterase 1+ /uL (Negative) Urine RBC 1 /hpf (0 - 4) Urine Microscopic WBC 1 /HPF (0-5) Urine Squamous Epithelial Cells Few /hpf (<5) Urine Bacteria None seen /hpf (None Seen) Urine Glucose Normal mg/dL (Normal) Other Laboratory Tests 10/06/24 05:41 Brief Hx & Hospital Course: The patient is a 68-year-old lady who was admitted after she underwent laparoscopic cholecystectomy for cholelithiasis and chronic cholecystitis. Patient tolerated the procedure well. Will be discharged home with a LUIS drain. Will need to followup with Dr. Wick in surgical clinic in 1 week. Operations or Procedures Room: / Bed: Attending Phy: GEMMA WICK MD DATE OF SURGERY: 10/04/2024 PREOPERATIVE DIAGNOSES: Cholelithiasis, cholecystitis. POSTOPERATIVE DIAGNOSES: Cholelithiasis, cholecystitis. SURGEON: Gemma Wick MD TERRAZZO MECHANIC HELPER: Abhinav Gay NP ANESTHESIA: General endotracheal, Dr. Sam PROCEDURE: Laparoscopy, laparoscopic cholecystectomy. DESCRIPTION OF PROCEDURE: Under general endotracheal anesthesia with the patient's skin prepped and draped, a supraumbilical incision was made and a Veress needle utilized to establish pneumoperitoneum. The needle was inserted into the peritoneal cavity by the hanging drop technique and the insufflation accomplished to 15 mmHg pressure. The patient's abdomen was fully distended. The needle was removed and replaced with a 5-mm trocar port through which a 0-degree viewing laparoscope was inserted and under direct vision additional ports were inserted through the right anterior axillary line at the level of the umbilicus and there was a subxiphoid midline skin 5 mm and 10 mm ports respectively. Instrumentation was then introduced and the patient's laparoscopy was performed. It was hampered by the patient's morbid obesity; however, no obvious unexpected pathology was encountered on serosal surfaces visualized. The gallbladder was affected by chronic cholecystitis. Multiple adhesions between the gallbladder and the omentum were lysed sharply and bluntly. Numerous Oweg-Ovjn-Xadflz like adhesions between the anterior abdominal wall and the superior aspects of the right lobe of the liver were encountered and were lysed sharply and bluntly as well. Subsequently, the gallbladder was placed on tension, grasped at the infundibular portion, and placed cephalad. The cystic duct was exceedingly short. The cystic duct and cystic artery were identified, circumferentially dissected, skeletonized, and traced into the hepaticocystic triangle so as to minimize the potential for inadvertent injury to the common bile duct. Cystic duct and artery were then divided close to the gallbladder, again attempting to protect the common duct from injury. Following division of the cystic duct and cystic artery, the gallbladder was resected from its liver bed by electrocautery and traction and the fully mobilized gallbladder was removed from the peritoneal cavity by placement in a specimen extraction bag, which was withdrawn through the subxiphoid 10 mm port site. With the gallbladder removed from the peritoneal cavity, the right upper quadrant was irrigated. Irrigant was aspirated. Hemostasis was meticulously accomplished and found to be complete at the termination of the procedure. There was no evidence of bleeding from either the liver bed at the site of the cholecystectomy or from the port sites. The patient's subhepatic space was drained by means of a 10-mm port drain, which was exteriorized through the right lower quadrant 5 mm port site and secured with a 2-0 nylon suture. Following assurance of complete hemostasis, instrumentation and pneumoperitoneum was evacuated. Fascial defect closed using #0 Vicryl. Approximation of the wound was accomplished using Monocryl sutures, Dermabond glue, and Steri-Strips. The patient remained stable throughout the procedure, left the operating room following an accurate needle and sponge counts. Her daughter, Shaye, was thoroughly informed at [phone]. Condition at Discharge: Stable Final Diagnosis/Problems List Cholelithiasis, cholecystitis. Morbid Obesity Discharge Disposition: Home Discharge Instruct/Medications Diet: See Comment Diet comment: Low Fat Activity: Light activity Follow Up/Referral: Dr. Wick in 2 weeks Medications: Tramadol PRN Discharge Statement: "Patient was advised to return to the ER or call 911 if any headaches, dizziness, shortness of breath, chest pain, abdominal pain, bleeding, fevers, or worsening of medical condition. Patient was counseled about treatment plan, medications, possible side effects, patientverbalized understanding. All questions were answered to the best of my ability. This discharge took greater then 30 minutes in planning, reviewing documentation, counseling the patient, and discussing with other team members." ASSESSMENT ASSESSMENT Assessment Date of Service: October 06, 2024 Billing Provider: KEVYN CABRAL MD Common Visit Codes: [id number] DISCH DAY >30min KEVYN CABRAL MD October 06, 2024 11:03
[2024-10-06 12:59] VITALS: BP 122/77; PULSE 83; RESP 16; TEMP 98.1; O2SAT 96
== END 2024-10-06 12:40 | disposition home or self-care (01) | DRG 419 ==
LOC: SUR 06:15 → OVERFLOW 11:15 → CENTRAL 11:51
PROVIDERS: ADMIT Internal Medicine; ATTEND Internal Medicine
PROC: 0FT44ZZ Resection of Gallbladder, Percutaneous Endoscopic Approach (ICD-10-PCS; principal; 2024-10-04 08:14)
DX: K80.10 Calculus of gallbladder with chronic cholecystitis without obstruction (principal); I10 Essential (primary) hypertension; E66.01 Morbid (severe) obesity due to excess calories; K66.0 Peritoneal adhesions (postprocedural) (postinfection); K82.8 Other specified diseases of gallbladder; Z68.34 Body mass index [BMI] 34.0-34.9, adult
CPT/HCPCS: 36415; 80053; 81001; 85025; 85610; 85730; 86850; 86900; 86901; G0378; J0131; J0330; J1100; J2250; J2405; J2704; J3490

== ENCOUNTER 2025-01-02 12:32 | Outpatient (CLI) | payer OTHER ==
[~2025-01-02 12:32] MED LIST changes: +TRAM-626 PO
== END 2025-01-02 17:00 | disposition home or self-care (01) ==
LOC: LAB 12:32
PROVIDERS: ATTEND Internal Medicine
DX: Z12.11 Encounter for screening for malignant neoplasm of colon (principal)
CPT/HCPCS: 82270

== ENCOUNTER 2025-03-07 08:26 | Outpatient (CLI) | payer OTHER, MEDICAID ==
[2025-03-07 08:56] LABS: Hematocrit 39.4 % (36.0-46.0); Hemoglobin 13.2 g/dL (12.2-16.2); Mean Corpuscular Hemoglobin 27.8 pg (28.0-32.0); Mean Corpuscular Volume 83.0 fL (80.0-100.0); Nucleated Red Blood Cells % 0.0 %
[2025-03-07 09:01] LABS: Urine Protein, UAD Negative (Negative)
[2025-03-07 09:20] LABS: Alanine Aminotransferase 26 U/L (7-40); Albumin 4.4 g/dL (3.2-4.8); Alkaline Phosphatase 108 U/L (46-116); Anion Gap 8 (5-15); BUN/Creatinine Ratio 16.7 (10.0-20.0); Bilirubin, Total 0.8 mg/dL (0.2-1.0); Blood Urea Nitrogen 11 mg/dL (9-23); Calcium 9.5 mg/dL (8.7-10.4); Carbon Dioxide 29 mmol/L (20-31); Chloride 107 mmol/L (98-107); Cholesterol 170 mg/dL (< 200); Glucose 82 mg/dL (74-106); HDL Cholesterol 48 mg/dL (40-59); Potassium 4.2 mmol/L (3.5-5.1); Sodium 144 mmol/L (136-145); Total Protein 7.6 g/dL (5.7-8.2)
[2025-03-07 09:21] LABS: Triglycerides 190 mg/dL (< 150)
== END 2025-03-07 17:00 | disposition home or self-care (01) ==
LOC: LAB 08:26
PROVIDERS: ATTEND Internal Medicine
DX: I10 Essential (primary) hypertension (principal); E55.9 Vitamin D deficiency, unspecified; D64.9 Anemia, unspecified; Z13.1 Encounter for screening for diabetes mellitus
CPT/HCPCS: 36415; 80053; 80061; 81001; 82306; 83036; 84439; 84443; 85025